=== PATIENT | male | born 1985 | race Two or more races ===

== ENCOUNTER 2024-06-01 00:31 | Inpatient (IN) | payer MEDICARE, MEDICAID, SELFPAY ==
[2024-06-01] VITALS (12 sets, daily range): BP systolic 97–125; BP diastolic 56–66; PULSE 77–142; RESP 16–98; TEMP 36.4–39.4; O2SAT 93–100; BMI 27.4; BMI 27.8; BMI 15.0
--- NOTE | 2024-06-01 00:45 | XR_ITS ---
Examination: AP chest single view Technique one AP portable upright chest single view Exam date and time: June 01, 2024 0059 hrs. Indications: Sepsis protocol Findings: Subsegmental atelectasis left base with mild elevation left hemidiaphragm No lobar pneumonia Orthopedic support rods dorsal spine No pulmonary edema Impression: No lobar pneumonia identified
--- NOTE | 2024-06-01 00:52 | PD.EDRME ---
Rapid Medical Screening Exam RME Arrival date/time: 06/01/24 00:31 Chief Complaint: Wound/Laceration Time Seen by Provider: 06/01/24 00:49 Vital signs: Vital Signs Temperature 100.7 F H 06/01/24 00:42 Pulse Rate 134 H 06/01/24 00:42 Respiratory Rate 18 06/01/24 00:42 Blood Pressure 97/57 L 06/01/24 00:42 Pulse Oximetry (%) 93 L 06/01/24 00:42 Oxygen Delivery Method Room Air 06/01/24 00:42 RME Narrative: 39-year-old male with history of neurogenic bladder, paraplegia, recurrent UTI coming into the emergency department with EMS reports that he has a deep wound on the sacral area. The patient is awake and alert.
[2024-06-01] MEDS: SODIUM CHLORIDE 0.9% 1000 ML 1,000 ML 999 ML IV ×2 (01:15)
[2024-06-01] MEDS: KETOROLAC INJ 30 MG/ML VIAL IVP (01:23)
[2024-06-01] MEDS: ACETAMINOPHEN 500 MG TABLET 1000 MG PO (01:24)
[2024-06-01 01:33] LABS: Lactate (Lactic Acid) 1.3 mMol/L (0.4-2.0)
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
[2024-06-01 01:57] LABS: Basophils # (Auto) 0.1 Thou/mm3 (0.0-0.2); Basophils % (Auto) 1 % (0-2.5); Eosinophils # (Auto) 0.1 Thou/mm3 (0.0-0.5); Eosinophils % (Auto) 1 % (0-10); Hematocrit 33.4 % (41.0-53.0); Hemoglobin 10.8 g/dL (13.5-16.0); Immature Granulocytes % (Auto) 0 % (0-0); Immature Granulocytes Auto 0.04 Thou/mm3 (0.00-0.00); Lymphocytes % (Auto) 24 % (10-50); Mean Corpuscular HGB Conc 32.3 g/dl (31.0-37.0); Mean Corpuscular Volume 87 fL (80-100); Monocytes # (Auto) 0.8 Thou/mm3 (0.0-0.8); Monocytes % (Auto) 6 % (0-12); Neutrophils # (Auto) 8.4 Thou/mm3 (1.8-7.7); Neutrophils % (Auto) 68 % (37-80); Nucleated Red Blood Cell % 0 /100 WBC (0); Platelet Count 449 Thou/mm3 (140-440); RDW Standard Deviation 40.6 fL (35.1-43.9); Red Blood Count 3.86 Miln/mm3 (4.50-5.90); White Blood Count 12.3 Thou/mm3 (3.8-10.6)
--- NOTE | 2024-06-01 02:24 | XR_ITS ---
Examination: CT abdomen with intravenous contrast CT pelvis with intravenous contrast 2-D coronal reconstructions 2-D sagittal reconstructions Date and time of exam:June 01, 2024 at 0340 hrs. Indications: Fever left buttock nonhealing wound with redness swelling and pain this week. CTDI: vol (mGy) 6.88 DLP: (mGycm) 420 Technique: Multiple axial sections of the abdomen and pelvis have been obtained. 64 slice high-resolution scanner used. 3 mm axial sections have been obtained, post intravenous injection 60 cc [id number] 2-D sagittal, coronal reconstructions obtained. Low dose protocols were performed. One or more of the following dose reduction techniques were used; automated exposure control, adjustment of the mA and/or KV according to patient size, use of iterative reconstruction technique. Findings: Trace pericardial thickening No focal liver or splenic lesion Contracted gallbladder No pancreatic or adrenal mass IVC filter No renal or ureteral calculi, no hydronephrosis Abundant stool in the colon Urinary bladder shows wall thickening, the urinary bladder is contracted around a Ward catheter Large air-containing soft tissue defect in the left buttock which extends to the left ischium with osteomyelitis, cortical bone destruction involving the posterior left ischium No fluid-filled drainable abscess Impression: Large soft tissue defect in the left buttock region extending to the left ischium with osteomyelitis left ischium
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
[2024-06-01 02:28] LABS: B-Type Natriuretic Peptide < 20 pg/mL (0-100)
[2024-06-01 02:33] LABS: INR 1.1 (0.9-1.3); Partial Thromboplastin Time 29.9 Seconds (22.0-36.0); Prothrombin Time 12.4 Seconds (9.0-12.2)
[2024-06-01] MEDS: CEFEPIME INJ 2 GM in SODIUM CHLORIDE 0.9% (P) 50 ML IV (02:43)
[2024-06-01] MEDS: Vancomycin Inj 1,000 MG in SODIUM CHLORIDE 0.9% 250 ML 250 ML 150 MG IV (02:45)
[2024-06-01 02:47] LABS: Collection Type, Urine Clean Catch
[2024-06-01 02:51] LABS: Bilirubin,Urine Negative (Negative); Blood,Urine Negative (Negative); Clarity,Urine Clear (Clear/Hazy); Color,Urine Lt-Yellow (Lt Yel-Yel); Glucose, Urine Negative (Negative); Ketones,Urine Negative (Negative); Leukocyte Esterase,Urine Negative (Negative); Nitrite,Urine Negative (Negative); Protein,Urine Negative (Neg - Trace); RBC,Urine 1 /hpf (0-3); Squamous Epithelial Cell,Urine < 1 /hpf (0-5); Urobilinogen,Urine Negative mg/dL (0.0-1.0); WBC,Urine 2 /hpf (0-5)
[2024-06-01 03:07] LABS: Alanine Aminotransferase 17 U/L (10-49); Albumin, Serum 3.9 gm/dL (3.5-5.0); Albumin/Globulin Ratio 1.3 (1.2-2.2); Alkaline Phosphatase 93 U/L (46-116); Anion Gap 9 (7-16); Aspartate Amino Transferase < 8 U/L (0-34); BUN/Creatinine Ratio 18 Ratio (12-20); Bilirubin,Total 0.3 mg/dL (0.3-1.2); Blood Urea Nitrogen 14 mg/dL (9-23); Calcium 8.2 mg/dL (8.3-10.6); Calcium (Corrected) 8.3 mg/dL (8.5-10.1); Carbon Dioxide 24.7 mMol/L (20.0-31.0); Chloride 100 mMol/L (98-107); Creatinine (Component) 0.8 mg/dL (0.6-1.3); Estimated Creatinine Clearance 119.5 mL/min (>60); Glucose 116 mg/dL (74-106); LDH (Lactate Dehydrogenase) 194 U/L (120-246); Lipase 38 U/L (12-53); Osmolality,Calculated 269 (275-295); Phosphorous 1.9 mg/dL (2.4-5.1); Potassium 3.4 mMol/L (3.4-5.1); Procalcitonin 0.51 ng/ml (0.0-0.49); Sodium 134 mMol/L (136-145); Total Protein 6.9 gm/dL (5.7-8.2); Troponin I < 0.002 ng/mL (0.0-0.045); eGFR > 60 See Note
--- NOTE | 2024-06-01 04:50 | PRELIM_ITS ---
CT scan of the abdomen and pelvis with intravenous contrast (axial sections with sagittal and coronal reformats) June 01, 2024 at 0340 hoursClinical History: 39 yo with paraplegia, le buttock woundC omparison: None available at the time of this report.Findings:The lung bases are clear.The liver, ga llbladder, pancreas, spleen, kidneys and adrenals are unremarkable.No evidence of bowel obstruction. No evidence of appendicitis. There is no mesenteric or retroperitoneal adenopathy.Ward catheter in place. There is no free fluid or free air.Partially imaged thoracic spine hardware.IVC filter in pl [place].No acute fractures.Elevated left hemidiaphragm.Decubitus wound at the level of the left buttock e xtending to the left ischial tuberosity with lytic changes of the left ischium.Impression:1. Left but tock decubitus wound associated with osteomyelitis.2. Elevated left hemidiaphragm.Discussion Details: Results verbally communicated to : Dr. Denton at 04:45 AM 06/01/2024 Report Electronically Signed By: Jayme Cancino 06/01/2024 4:49:53 AM [EST]
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
[2024-06-01] MEDS: PIPER/TAZO INJ 3.375 GM in SODIUM CHLORIDE 0.9% 100 ML IV (05:49)
[2024-06-01] MEDS: SODIUM CHLORIDE 0.9% 1000 ML 1,000 ML 75 ML IV (05:54)
[2024-06-01 07:08] LABS: Ferritin 549 ng/mL (10.5-307.3); Iron 17 mcg/dL (65-175); Percent Iron Saturation 9 % (20-55); Total Iron Binding Capacity 184 mcg/dL (250-425); Unsaturated Iron Binding 167 (225-295)
--- NOTE | 2024-06-01 07:08 | PC.NURSE ---
CALLED PHARMACY TO BRING KPHOS. WILL BRING MED TO ER.
[2024-06-01] MEDS: POTASSIUM PHOS 22.5 MMOL in SODIUM CHLORIDE 0.9% 500 ML 500 ML 82.778 MMOL IV (07:41)
--- NOTE | 2024-06-01 07:45 | PC.NURSE ---
PT BROUGHT IN WITH C/O FEVER AND BEING ADMITTED FOR OSTEOMYELITIS LEFT BUTTOCK WOUND. INTRODUCED TO DAY SHIFT NURSE, AND NO COMPLAINTS AT THIS TIME.
--- NOTE | 2024-06-01 08:11 | PC.NURSE ---
PHARMACY CALLED FOR MORNING MEDICATIONS
[2024-06-01 08:25] LABS: C-Reactive Protein 16.5 mg/dL (0.0-0.9)
[2024-06-01] MEDS: NAPH,KPH MBDB 1 PACKET (1.5 GM) 2 PACKET PO (09:00)
[2024-06-01] MEDS: ENOXAPARIN SOD INJ 40 MG/0.4 ML SYRINGE SC (09:00)
[2024-06-01] MEDS: CALCIUM CARBONATE 600 MG TABLET 1200 MG PO (09:00)
[2024-06-01 09:32] LABS: Sed Rate (ESR) 60 mm/hr (0-15)
[2024-06-01] MEDS: VANCOMYCIN/WATER 1250 MG IVPB 250 ML 120 MG IV ×2 (10:09→21:12)
--- NOTE | 2024-06-01 11:51 | PC.NURSE ---
RN spoke with MD at bedside asking about wound care for the wound on the left buttock. stated Dr. Cisse has been consulted. MD ordered RN to consult wound nurse as well. MD ordered to leave wound open to air until wound nurse can see the pt.
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
--- NOTE | 2024-06-01 12:30 | PC.WOUND ---
Rounded with Dr. Cisse at bedside, no surgical intervention required. Orders received for wound care.
[2024-06-01] MEDS: PIPER/TAZO 3.375 GM 50 ML IV ×2 (15:04→21:19)
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
[2024-06-01] MEDS: COLLAGENASE OINT 30 GM TUBE TOP (21:19)
[2024-06-01] MEDS: ONDANSETRON INJ 2 MG/ML INJ 2 ML 4 MG IV (21:28)
[2024-06-02] VITALS: BP 108/64; PULSE 112; RESP 16; TEMP 37.3; O2SAT 97
[2024-06-02 04:00] VITALS: BP 117/65; PULSE 99; RESP 16; TEMP 36.2; O2SAT 97
[2024-06-02] MEDS: PIPER/TAZO 3.375 GM 50 ML IV ×3 (05:31→22:55)
[2024-06-02 06:10] LABS: Basophils % (Auto) 0 % (0-2.5); Eosinophils # (Auto) 0.2 Thou/mm3 (0.0-0.5); Eosinophils % (Auto) 2 % (0-10); Hemoglobin 10.7 g/dL (13.5-16.0); Immature Granulocytes % (Auto) 0 % (0-0); Immature Granulocytes Auto 0.03 Thou/mm3 (0.00-0.00); Lymphocytes # (Auto) 2.1 Thou/mm3 (1.0-4.8); Lymphocytes % (Auto) 24 % (10-50); Mean Corpuscular HGB Conc 32.4 g/dl (31.0-37.0); Mean Corpuscular Hemoglobin 28.2 pg (25.0-35.0); Mean Corpuscular Volume 87 fL (80-100); Monocytes # (Auto) 0.6 Thou/mm3 (0.0-0.8); Monocytes % (Auto) 7 % (0-12); Neutrophils # (Auto) 5.9 Thou/mm3 (1.8-7.7); Neutrophils % (Auto) 67 % (37-80); Nucleated Red Blood Cell % 0 /100 WBC (0); Platelet Count 410 Thou/mm3 (140-440); RDW Standard Deviation 40.6 fL (35.1-43.9); White Blood Count 8.9 Thou/mm3 (3.8-10.6)
[2024-06-02 06:39] LABS: Anion Gap 8 (7-16); BUN/Creatinine Ratio 13 Ratio (12-20); Blood Urea Nitrogen 8 mg/dL (9-23); Calcium 8.2 mg/dL (8.3-10.6); Carbon Dioxide 26.9 mMol/L (20.0-31.0); Chloride 106 mMol/L (98-107); Creatinine (Component) 0.6 mg/dL (0.6-1.3); Estimated Creatinine Clearance 160.2 mL/min (>60); Glucose 114 mg/dL (74-106); Osmolality,Calculated 280 (275-295); Potassium 3.6 mMol/L (3.4-5.1); Sodium 141 mMol/L (136-145); eGFR > 60 See Note
[2024-06-02 08:00] VITALS: BP 116/72; PULSE 102; RESP 18; TEMP 36.3; O2SAT 98
[2024-06-02] MEDS: ENOXAPARIN SOD INJ 40 MG/0.4 ML SYRINGE SC (08:33)
[2024-06-02 10:15] LABS: Vancomycin,Trough 6.2 mcg/mL (5.0-10.0)
[2024-06-02 10:31] LABS: Magnesium 2.1 mg/dL (1.6-2.6); Phosphorous 3.6 mg/dL (2.4-5.1)
[2024-06-02] MEDS: VANCOMYCIN/NS 750 MG IVPB 750 MG/150 ML BAG 120 MG IV ×2 (10:55→22:55)
--- NOTE | 2024-06-02 11:39 | XR_ITS ---
Examination: Ultrasound-guided needle placement right brachial vein. Dual-lumen central line placement (PICC line). Fluoroscopy AP chest, portable, single view Exam date and time:June 02, 2024 at 1344 hours INDICATIONS: Need for long-term intravenous antibiotic therapy for osteomyelitis A timeout was completed verifying correct patient, procedure, site, positioning Informed consent provided Technique: The patient's site was prepped and draped in sterile fashion. Maximum Sterile Barrier Technique used including cap, mask, sterile gown, sterile gloves, and sterile full body drape. If ultrasound technique used: sterile gel and sterile probe covers. Hand Hygiene performed using proper scrub, soap and water, or alcohol-based hand rub. Site right portable apparatus utilized to confirm patency of the right brachial vein Utilizing ultrasonographic guidance successful 21-gauge needle puncture into the right brachial vein Ultrasound images recorded and stored. 5 cc 1% lidocaine administered for local anesthetic. Successful micropuncture with a 21-gauge needle is performed. 0.18 wire guide is then introduced into the SVC under fluoroscopic guidance. Dual-lumen catheter dilator is then introduced, followed by the catheter in the SVC and proper position under fluoroscopic guidance. Successful aspiration of blood and flushing with heparinized saline is then performed in the 2 venous limbs. The catheter sutured in place. Findings: Under fluoroscopy, the tip of the catheter is in good position in the vena cava. Portable chest x-ray, post line placement is ordered. Estimated blood loss 3 cc The patient tolerated the procedure well and was in stable and satisfactory condition at completion of the procedure Impression: Successful ultrasound-guided needle placement right brachial vein Successful placement of dual lumen central line, percutaneous Fluoroscopy 0.1 minute radiation dose 0.6 milligray 1 spot fluoroscopic chest film. AP chest completion procedure demonstrates satisfactory position central line. May use central line.
[2024-06-02 12:00] VITALS: BP 122/81; PULSE 72; RESP 18; TEMP 36.3; O2SAT 95
[2024-06-02 14:30] VITALS: BMI 27.8
--- NOTE | 2024-06-02 14:47 | PC.DIETICIAN ---
Addendum entered by Lyly Velasquez RD 06/02/24 14:54: 1. RD to add Flavored Caden 1 pkt BID daily w/ lunch and dinner; mix with 6-8 oz water for targeted nutrition and wound healing, RN to administer as medication 2. Recommendation: add Vitamin C 500mg BID daily, zinc 220mg. 3. Multivitamin-Mineral daily to ensure adequate nutrient intake and promote wound healing. 4. Recommend Prostat, increased protein to promote wound healing and adequate nutrition. 5. If intake <50%, consider ONS, Ensure Max Protein Original Note: 1. RD to add Flavored Caden 1 pkt BID daily w/ lunch and dinner; mix with 6-8 oz water for targeted nutrition and wound healing, RN to administer as medication 2. Recommendation: add Vitamin C 500mg BID daily, zinc 220mg. 3. Multivitamin-Mineral daily to ensure adequate nutrient intake and promote wound healing. 4. Recommend Prostat, increased protein to promote wound healing and adequate nutrition.
--- NOTE | 2024-06-02 15:43 | PC.SS ---
SS met with pt to discuss d/c plan to home or SNF. Pt is agreeable to SNF if recommended by physician. Pt possibly will require IV antibiotic at d/c. Waiting for ID recommendations. Pt is currently on IV antibiotic. Pt does not have preference for short term SNF.
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
[2024-06-02 16:00] VITALS: BP 122/72; PULSE 98; RESP 18; TEMP 36.2; O2SAT 100
--- NOTE | 2024-06-02 16:24 | PD.IDPROG ---
Subjective Subjective Interval history: treating a du with osteo with abx. that is ok, but a du is primarily a pressure sore, so if you do not relieve pressure, nothing will change but you will feel better having treated the infection I will see pt tomorrow. wed, pm Exam Vital Signs Temp Pulse Resp BP Pulse Ox O2 Del Method 97.4 F 72 18 122/81 95 Room Air 06/02/24 12:00 06/02/24 12:00 06/02/24 12:00 06/02/24 12:00 06/02/24 12:00 06/02/24 12:00 Objective - Internal Medicine Labs 06/02/24 05:00 06/02/24 05:18 Labs: Laboratory Results - last 24 hr 06/02/24 06/02/24 06/02/24 05:00 05:18 09:35 WBC 8.9 RBC 3.80 L Hgb 10.7 L Hct 33.0 L MCV 87 MCH 28.2 MCHC 32.4 RDW Std Deviation 40.6 Plt Count 410 D Neut % (Auto) 67 Lymph % (Auto) 24 [place] % (Auto) 7 Eos % (Auto) 2 Baso % (Auto) 0 Neut # (Auto) 5.9 Lymph # (Auto) 2.1 [place] # (Auto) 0.6 Eos # (Auto) 0.2 Baso # (Auto) 0.0 Immature Gran # (Auto) 0.03 H Absolute Nucleated RBC 0.00 Immature Gran % 0 Nucleated RBC % 0 Sodium 141 Potassium 3.6 Chloride 106 Carbon Dioxide 26.9 Anion Gap 8 BUN 8 L Creatinine 0.6 Estim Creat Clear Calc 160.2 eGFR > 60 BUN/Creatinine Ratio 13 Glucose 114 H Calculated Osmolality 280 Calcium 8.2 L Phosphorus 3.6 Magnesium 2.1 Vancomycin Trough 6.2 Assessment & Plan A&P Narrative pelvic osteo on imaging paraplegia per notes spasticity per meds vanco/zosyn is classic but is empiric. I tend to favor rocephin and doxy and avoidance of pressure. will see tomorrow pm Time Spent With Patient Time: Total time spent is greater than 50% in coordination of care (as documented) at patient's floor/unit and/or counseling patient:
[2024-06-02 20:00] VITALS: BP 117/69; PULSE 68; RESP 18; TEMP 36.7; O2SAT 93
[2024-06-02] MEDS: COLLAGENASE OINT 30 GM TUBE TOP (20:19)
[2024-06-03] VITALS: BP 96/57; PULSE 108; RESP 18; TEMP 37.3; O2SAT 96
[2024-06-03 03:55] VITALS: BP 114/72; PULSE 86; RESP 18; TEMP 36.5; O2SAT 97
[2024-06-03] MEDS: PIPER/TAZO 3.375 GM 50 ML IV ×3 (05:17→21:09)
[2024-06-03] MEDS: VANCOMYCIN/NS 750 MG IVPB 750 MG/150 ML BAG 120 MG IV ×3 (05:17→21:09)
[2024-06-03 06:04] LABS: Basophils % (Auto) 0 % (0-2.5); Eosinophils # (Auto) 0.2 Thou/mm3 (0.0-0.5); Eosinophils % (Auto) 2 % (0-10); Hematocrit 34.2 % (41.0-53.0); Hemoglobin 10.9 g/dL (13.5-16.0); Immature Granulocytes % (Auto) 0 % (0-0); Immature Granulocytes Auto 0.04 Thou/mm3 (0.00-0.00); Lymphocytes # (Auto) 2.1 Thou/mm3 (1.0-4.8); Lymphocytes % (Auto) 21 % (10-50); Mean Corpuscular HGB Conc 31.9 g/dl (31.0-37.0); Mean Corpuscular Volume 88 fL (80-100); Monocytes # (Auto) 0.6 Thou/mm3 (0.0-0.8); Monocytes % (Auto) 6 % (0-12); Neutrophils # (Auto) 7.1 Thou/mm3 (1.8-7.7); Neutrophils % (Auto) 70 % (37-80); Nucleated Red Blood Cell % 0 /100 WBC (0); Platelet Count 412 Thou/mm3 (140-440); RDW Standard Deviation 41.2 fL (35.1-43.9); Red Blood Count 3.89 Miln/mm3 (4.50-5.90)
--- NOTE | 2024-06-03 06:20 | PC.NURSE ---
Dr. Tate notified of wound culture results. No new orders at this moment.
[2024-06-03 06:26] LABS: Anion Gap 5 (7-16); BUN/Creatinine Ratio 10 Ratio (12-20); Blood Urea Nitrogen 6 mg/dL (9-23); Calcium 8.4 mg/dL (8.3-10.6); Carbon Dioxide 28.7 mMol/L (20.0-31.0); Chloride 105 mMol/L (98-107); Creatinine (Component) 0.6 mg/dL (0.6-1.3); Estimated Creatinine Clearance 156.9 mL/min (>60); Glucose 103 mg/dL (74-106); Osmolality,Calculated 275 (275-295); Potassium 3.7 mMol/L (3.4-5.1); Sodium 139 mMol/L (136-145); eGFR > 60 See Note
[2024-06-03 06:58] LABS: Hepatitis C Antibody Non Reactive (Non React)
[2024-06-03 07:37] LABS: HIV (1&2) Antibody Rapid Non-Reactive
[2024-06-03 08:00] VITALS: BP 121/67; PULSE 80; RESP 17; TEMP 36.6; O2SAT 96
--- NOTE | 2024-06-03 09:10 | PC.SS ---
Follow up note: Pt is on IV antibiotic. Waiting for ID recommendations. Pt is agreeable to SNF if he requires IV antibiotic.
[2024-06-03] MEDS: ENOXAPARIN SOD INJ 40 MG/0.4 ML SYRINGE SC (09:55)
[2024-06-03 12:00] VITALS: BP 121/71; PULSE 78; RESP 18; TEMP 36.1; O2SAT 97
--- NOTE | 2024-06-03 12:35 | PC.SS ---
Pt is requiring IV antibiotic, Rocephin 2grm 1 X day until Jul 14, 2023. SS has sent inquiry to SNF in [place] and outside the area using [facility]. PASRR assessment is completed.
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
--- NOTE | 2024-06-03 14:12 | PD.IDPROG ---
Subjective Subjective Interval history: hx as noted. Exam Vital Signs Temp Pulse Resp BP Pulse Ox O2 Del Method 97.0 F 78 18 121/71 97 Room Air 06/03/24 12:00 06/03/24 12:00 06/03/24 12:00 06/03/24 12:00 06/03/24 12:00 06/03/24 12:00 Objective - Internal Medicine Labs 06/03/24 05:10 06/03/24 05:10 Labs: Laboratory Results - last 24 hr 06/03/24 06/03/24 05:10 13:34 WBC 10.0 RBC 3.89 L Hgb 10.9 L Hct 34.2 L MCV 88 MCH 28.0 MCHC 31.9 RDW Std Deviation 41.2 Plt Count 412 Neut % (Auto) 70 Lymph % (Auto) 21 [place] % (Auto) 6 Eos % (Auto) 2 Baso % (Auto) 0 Neut # (Auto) 7.1 Lymph # (Auto) 2.1 [place] # (Auto) 0.6 Eos # (Auto) 0.2 Baso # (Auto) 0.0 Immature Gran # (Auto) 0.04 H Absolute Nucleated RBC 0.00 Immature Gran % 0 Nucleated RBC % 0 Sodium 139 Potassium 3.7 Chloride 105 Carbon Dioxide 28.7 Anion Gap 5 L BUN 6 L Creatinine 0.6 Estim Creat Clear Calc 156.9 eGFR > 60 BUN/Creatinine Ratio 10 L Glucose 103 Calculated Osmolality 275 Calcium 8.4 Vancomycin Trough 15.0 H Hepatitis C Antibody Non Reactive HIV 1&2 Antibody Rapid Non-Reactive Assessment & Plan A&P Narrative pelvic osteo on imaging paraplegia per notes spasticity per meds vanco/zosyn is classic but is empiric. I tend to favor rocephin and doxy and avoidance of pressure. bc aer neg at >48h Time Spent With Patient Time: Total time spent is greater than 50% in coordination of care (as documented) at patient's floor/unit and/or counseling patient:
[2024-06-03 16:00] VITALS: BP 119/77; PULSE 94; RESP 18; TEMP 36.2; O2SAT 99
--- NOTE | 2024-06-03 16:24 | PC.SS ---
SS met with pt and his dad to provide them with choices for SNF. Pt has been accepted to [facility], [facility], [facility], [facility], and [facility]. Pt is requesting [facility] but the declined. Patient's choice is [facility]. SS spoke to Amy at [facility] they will start insurance authorization. Pt and dad are aware. Bedside nurse, Stephenie is aware.
--- NOTE | 2024-06-03 18:37 | PC.NURSE ---
Wound vac changed.
[2024-06-03 20:00] VITALS: BP 127/73; PULSE 102; RESP 18; TEMP 36.6; O2SAT 99
[2024-06-03] MEDS: COLLAGENASE OINT 30 GM TUBE TOP (20:20)
[2024-06-03] MEDS: SENNA TABLET 1 TAB PO (21:10)
[2024-06-04] VITALS: BP 113/66; PULSE 107; RESP 18; TEMP 36.8; O2SAT 99
[2024-06-04 04:00] VITALS: BP 119/60; PULSE 108; RESP 18; TEMP 37.2; O2SAT 95
[2024-06-04] MEDS: VANCOMYCIN/NS 750 MG IVPB 750 MG/150 ML BAG 120 MG IV (05:08)
[2024-06-04] MEDS: PIPER/TAZO 3.375 GM 50 ML IV (05:08)
[2024-06-04 06:02] LABS: Basophils % (Auto) 0 % (0-2.5); Eosinophils # (Auto) 0.3 Thou/mm3 (0.0-0.5); Eosinophils % (Auto) 3 % (0-10); Hematocrit 34.5 % (41.0-53.0); Immature Granulocytes % (Auto) 0 % (0-0); Immature Granulocytes Auto 0.03 Thou/mm3 (0.00-0.00); Lymphocytes # (Auto) 1.8 Thou/mm3 (1.0-4.8); Lymphocytes % (Auto) 20 % (10-50); Mean Corpuscular HGB Conc 31.9 g/dl (31.0-37.0); Mean Corpuscular Hemoglobin 27.8 pg (25.0-35.0); Mean Corpuscular Volume 87 fL (80-100); Monocytes # (Auto) 0.6 Thou/mm3 (0.0-0.8); Monocytes % (Auto) 6 % (0-12); Neutrophils # (Auto) 6.6 Thou/mm3 (1.8-7.7); Neutrophils % (Auto) 71 % (37-80); Nucleated Red Blood Cell % 0 /100 WBC (0); Platelet Count 390 Thou/mm3 (140-440); RDW Standard Deviation 41.1 fL (35.1-43.9); Red Blood Count 3.96 Miln/mm3 (4.50-5.90); White Blood Count 9.2 Thou/mm3 (3.8-10.6)
[2024-06-04 06:27] LABS: Anion Gap 7 (7-16); BUN/Creatinine Ratio 10 Ratio (12-20); Blood Urea Nitrogen 7 mg/dL (9-23); Calcium 8.9 mg/dL (8.3-10.6); Carbon Dioxide 27.9 mMol/L (20.0-31.0); Chloride 103 mMol/L (98-107); Creatinine (Component) 0.7 mg/dL (0.6-1.3); Estimated Creatinine Clearance 134.5 mL/min (>60); Glucose 104 mg/dL (74-106); Osmolality,Calculated 273 (275-295); Potassium 3.8 mMol/L (3.4-5.1); Sodium 138 mMol/L (136-145); eGFR > 60 See Note
[2024-06-04 08:00] VITALS: BP 93/75; PULSE 115; RESP 18; TEMP 36.3; O2SAT 96
[2024-06-04] MEDS: SENNA TABLET 1 TAB PO (09:21)
[2024-06-04] MEDS: ENOXAPARIN SOD INJ 40 MG/0.4 ML SYRINGE SC (09:21)
[2024-06-04 12:00] VITALS: BP 96/66; PULSE 106; RESP 17; TEMP 36.2; O2SAT 98
--- NOTE | 2024-06-04 12:37 | PC.SS ---
Addendum entered by Yas Mcdonough 06/04/24 13:48: SS received call from Ariana at [facility] who explained pt is not under [place]. SS spoke to Marce from [facility] who provided SS with [employer]'s phone# [phone] to assist with insurance authorization. SS was only able to leave voicemail with SS contact information. Marce is attempting to obtain fax#. Marce explained patient's health insurance [place] will only initiate authorization request through the hospital. Original Note: SS spoke to Gissel at [phone] (from [facility] notes) and explained to call [phone]. SS called [employer] at [phone] and spoke to Arpit who explained no member policy found with [place]. SS called Wilson from [facility] [phone] ex [phone] was only able to leave voicemail SS called Julianna [phone] was only able to leave voicemail SS called Marce from [facility] and explained she will provide SS with their personal lines account manager's information to get insurance authorization.
[2024-06-04] MEDS: DOXYCYCLINE 100 MG TABLET PO ×2 (14:08→21:01)
[2024-06-04] MEDS: cefTRIAXone/D5w 1gm IV premix 50 ML IV (14:08)
--- NOTE | 2024-06-04 14:27 | PC.SS ---
SUNNY spoke to Marce from [employer] who explained she confirmed with their authorization department Mu's fax# is [phone]. SUNNY has sent inquiry and PASRR to fax# provided by [employer]. Insurance authorization is pending.
[2024-06-04 16:00] VITALS: BP 116/63; PULSE 93; RESP 17; TEMP 36.4; O2SAT 98
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
--- NOTE | 2024-06-04 17:09 | PC.NURSE ---
Wound vac discontinued per wound JERRY Bettencourt. Wet to dry dressing applied to L Ischium, patient tolerated well
[2024-06-04 20:00] VITALS: BP 129/52; PULSE 68; RESP 18; TEMP 36.3; O2SAT 92
[2024-06-04] MEDS: COLLAGENASE OINT 30 GM TUBE TOP (21:00)
[2024-06-05] VITALS: BP 100/65; PULSE 91; RESP 18; TEMP 36.4; O2SAT 95
[2024-06-05 04:00] VITALS: BP 101/57; PULSE 94; RESP 16; TEMP 36.4; O2SAT 95
[2024-06-05 08:00] VITALS: BP 110/59; PULSE 103; RESP 19; TEMP 36.1; O2SAT 97
[2024-06-05] MEDS: DOXYCYCLINE 100 MG TABLET PO (08:02)
[2024-06-05] MEDS: SENNA TABLET 1 TAB PO (08:03)
[2024-06-05] MEDS: ENOXAPARIN SOD INJ 40 MG/0.4 ML SYRINGE SC (08:03)
--- NOTE | 2024-06-05 09:21 | PC.SS ---
Addendum entered by Yas Mcdonough 06/05/24 16:36: SS received authorization from [facility] and SS sent it to [facility]. Steph from [facility] is aware. SS met with pt (sister in law and nephews were at bedside) to inform him both parents did not answer. Pt states his dad is aware. Addendum entered by Yas Mcdonough 06/05/24 16:15: SS spoke to Angela, specialty plant supervisor from [facility] (number provided by SALAZAR Quiñonez) phone# [phone] and spoke to Alena nelson [phone] who confirmed she she has received fax from and will contact [facility] to provide insurance authorization. SS provided [facility]'s contact information. SS received insurance authorization form from [facility]. SS was informed by Marce at [facility] they have received insurance authorization and can accept pt. Pt is aware. Bedside nurse, Brittanie is aware. SS has setup transportation with [facility] and sent them ARLEEN along with patient's facesheet and ambulance form. Transport is set for 6pm. patient's dad did not answer. Mom did not answer and SS is unable to leave voicemail. Addendum entered by Yas Mcdonough 06/05/24 14:55: SS met with to obtain his insurance card from [employer]. Pt states his insurance card is at home. Pt is aware to inform parents to bring insurance card to hospital. SS attempted to contact patient's father but he did not answer. SS spoke to patient's mom who is aware patient's insurance card is needed and will have family bring bring card to hospital. SS has spoke to Marce at [facility] and she will also fax inquiry for authorization to [facility]. Addendum entered by Yas Mcdonough 06/05/24 11:24: SS received call back from Rashida, coordinator at [facility] and provided fax# [phone]. SS also received call back from Viral who transferred call to Angelica from [facility] and she provided fax# [phone] Angelica and Rashida requested for SS to fax inquiry for insurance authorization. Addendum entered by Yas Toro Mcdonough 06/05/24 10:40: SS called [phone] [facility] and registered SS phone# for call back. Addendum entered by Yas Mcdonough 06/05/24 10:29: This morning SS called [facility] around 8:35-8:50, was on hold, and unable to speak to representatives. At 10:320 SS attempted to contact [facility] [phone] to assist with insurance authorization (phone# provided by Marce from [facility]) but was unsuccessful. SS left voicemail. At 10:327 SS called [facility] at [phone] was on hold until 10:35. SS registered phone# to receive call back at [phone] (unable to leave voicemail) Original Note: SS received call from Marce at [facility] who explained she has contacted her Drafter Apprentice and was provided with fax# for [facility]. has faxed inquiry with d/c summary and order to the number provided by Marce and sent inquiry to [facility] using [employer].
--- NOTE | 2024-06-05 09:22 | PD.IDPROG ---
Subjective Subjective Interval history: bc done at same time neg so far. only pos is wound cx. Exam Vital Signs Temp Pulse Resp BP Pulse Ox O2 Del Method 97.0 F 103 H 19 110/59 L 97 Room Air 06/05/24 08:00 06/05/24 08:00 06/05/24 08:00 06/05/24 08:00 06/05/24 08:00 06/05/24 08:00 Narrative Exam limited eval Objective - Internal Medicine Labs 06/04/24 05:00 06/04/24 05:00 Assessment & Plan A&P Narrative pelvic osteo on imaging paraplegia per notes spasticity per meds vanco/zosyn is classic but is empiric. I tend to favor rocephin and doxy and avoidance of pressure. bc neg at >48h f/u with others ok to treat for 6 weeks with iv rocephin 2 gm iv daily and doxy 100 mg po bid with weekly cbc, renal panel, esr and line removal at end of rx will see again prn Time Spent With Patient Time: Total time spent is greater than 50% in coordination of care (as documented) at patient's floor/unit and/or counseling patient:
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
--- NOTE | 2024-06-05 11:30 | CHAP ---
Patient was visited by the Spiritual Care Volunteer who prayed for them. Volunteer was in the hospital from c10:00-11:30)
[2024-06-05 12:00] VITALS: BP 112/84; PULSE 98; RESP 17; TEMP 36.4; O2SAT 99
[2024-06-05] MEDS: cefTRIAXone/D5w 1gm IV premix 50 ML IV (12:43)
[2024-06-05 16:00] VITALS: BP 106/71; PULSE 122; RESP 18; TEMP 36.3; O2SAT 97
--- NOTE | 2024-06-05 16:47 | PC.NURSE ---
Report given to Sarah Lewis at [facility]
[2024-06-08 06:53] LABS: Vitamin D,1,25 (OH)2,Total 33 pg/mL (18-72); Vitamin D2, 1,25 (OH)2 <8 pg/mL; Vitamin D3, 1,25 (OH)2 33 pg/mL
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
== END 2024-06-05 18:05 | disposition skilled nursing facility (03) | DRG 539 ==
LOC: SERX 05:25 → SERHOLD 05:26 → S3SX 11:29
PROVIDERS: Internal Medicine Infectious Disease; Student in an Organized Health Care Education/Training Program; Admitting Provider Internal Medicine; Emergency Provider Emergency Medicine; Visit Provider Internal Medicine
DX: M86.18 Other acute osteomyelitis, other site (principal); L89.154 Pressure ulcer of sacral region, stage 4; E87.1 Hypo-osmolality and hyponatremia; N39.0 Urinary tract infection, site not specified; G82.20 Paraplegia, unspecified; N31.9 Neuromuscular dysfunction of bladder, unspecified; D75.839 Thrombocytosis, unspecified; E87.6 Hypokalemia; E83.39 Other disorders of phosphorus metabolism; Z87.440 Personal history of urinary (tract) infections; D63.8 Anemia in other chronic diseases classified elsewhere
CPT/HCPCS: 36415; 71045; 74177; 80048; 80053; 80202; 81001; 82652; 82728; 83540; 83550; 83605; 83615; 83690; 83735; 83880; 84100; 84145; 84484; 85025; 85610; 85652; 85730; 86140; 86703; 86803; 87040; 87070; 87077; 87081; 87086; 87186; 87205; 87811; 93005; 96361; 96365; 96366; 96367; 96368; 96375; 97161; 99291; A4649; C1894; J0692; J0696; J1650; J1885; J2405; J2543; J3370; J3371; J3372; J7030; J7040; J7050; Q9967; A9270

== ENCOUNTER 2024-06-13 23:36 | Inpatient (IN) | payer MEDICARE, MEDICAID, SELFPAY ==
[2024-06-13 23:38] VITALS: BP 118/71; PULSE 116; RESP 17; TEMP 37.2; O2SAT 94; BMI 26.6
[2024-06-13 23:53] VITALS: PULSE 112; RESP 17; O2SAT 98; BMI 26.6
[2024-06-14] VITALS (22 sets, daily range): BP systolic 99–143; BP diastolic 53–85; PULSE 80–120; RESP 10–100; TEMP 36.7–39.1; O2SAT 98–100
--- NOTE | 2024-06-14 00:07 | PC.NURSE ---
sepsis alert called
--- NOTE | 2024-06-14 00:10 | EKG_ITS ---
[facility] Test Date: 2024-06-14 Pat Name: LENNOX AVELAR Department: Room: - Gender: Male Patient Scheduling Manager: : 1985 Requested By: ED Temporary Provider Order Number: [id number] Reading MD: ED Temporary Provider Measurements Intervals [place] Rate: 98 P: 62 [place]: 119 QRS: 33 QRSD: 85 T: 61 QT: 339 QTc: 433 Interpretive Statements SINUS RHYTHM WITH SHORT OH INTERVAL No previous ECG available for comparison /store/S0/[id number].pdf
--- NOTE | 2024-06-14 00:11 | XR_ITS ---
Examination: AP chest single view Technique one AP semiupright portable chest single view Exam date and time: June 14, 2024 at 0023 hrs. Comparison June 01, 2024 Indications: Sepsis protocol Findings: Subsegmental atelectasis left base with elevation left hemidiaphragm No lobar pneumonia Minor prominence of ventricle Right arm dual-lumen central PICC line tip SVC No pneumothorax Impression: Minor atelectasis left base
--- NOTE | 2024-06-14 00:17 | EDNOTE_ITS ---
ED Fever RME/HPI General Chief Complaint: Fever Stated Complaint: FEVER Time Seen by Provider: 06/14/24 00:15 Arrival date/time: 06/13/24 23:36 Limitations: no limitations RME / HPI RME / HPI Narrative: Dr. Morfin's Main ED Evaluation: 39yo male with a history of stage 4 left buttock wound BIBA from [facility] presents to the ED for a chief complaint of a fever x 1 day. Patient reports associated sweating. 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 Denies any N/V/D, back pain, hematuria, dysuria or any other associated symptoms. No known allergies. Related Data Home Medications ?Medication ?Instructions ?Recorded ?Confirmed baclofen 20 mg tablet 20 mg PO TID #0 tabs 05/18/17 Previous Rx's ?Medication ?Instructions ?Recorded ceftriaxone 2 gram intravenous 2 g IV QDAY 42 days 06/03/24 solution doxycycline hyclate 100 mg tablet 100 mg PO BID 42 days #84 tabs 06/03/24 Allergies Allergy/AdvReac Type Severity Reaction Status Date / Time No Known Allergies Allergy Verified 11/11/18 18:07 Review of Systems Review of Systems Systems Reviewed: All systems reviewed, normal except as documented Past Medical History Past Medical History NEUROLOGIC: Positive Neurological Disorders and Spinal Cord Injury CARDIAC: Negative Cardiac Disorders or Congestive Heart Failure RESPIRATORY: Negative Chronic Obstructive Pulmonary Disease (COPD) or Asthma GENITOURINARY: Negative Renal Disease ENDOCRINE: Negative Diabetes Mellitus Type 1 or Diabetes Mellitus Type 2 HEMATOLOGIC: Negative Sickle Cell Disease Social History SMOKING STATUS: Former smoker Physical Exam General Limitations: no limitations General appearance: alert, in no apparent distress and other (responsive, talking in full sentences) Head Head exam: atraumatic Eye Eye exam: Present normal appearance, PERRL and EOMI ENT ENT exam: Present normal exam, normal oropharynx and mucous membranes moist Neck Neck exam: Present normal inspection, full ROM and trachea midline Chest Chest inspection: Present normal inspection and symmetric chest wall rise Respiratory Respiratory exam: Present normal lung sounds bilaterally Cardiovascular Cardiovascular exam: Present regular rate, normal rhythm and normal heart sounds Abdominal Exam Abdominal exam: Present soft and normal bowel sounds; Absent distention Extremities Exam Extremities exam: Present normal inspection and full ROM Back Exam Back exam: Present normal inspection, full ROM, paraspinal tenderness (mild along the right shoulder area) and other (no midline cervical or thoracic tenderness) Neurological Exam Neurological exam: Present alert, oriented X3 and CN II-XII intact Psychiatric Psychiatric exam: Present normal affect and normal mood Skin Skin exam: Present warm, dry, normal color and other (wound on the left buttock cheek is packed with gauze, but there is no obvious discharge, surrounding erythema or tenderness); Absent rash or mottled ED Exam General Limitations: Present no limitations General appearance: Present alert, in no apparent distress and other (responsive, talking in full sentences) Head Head exam: Present atraumatic Eye Eye exam: Present normal appearance, PERRL and EOMI ENT ENT exam: Present normal exam, normal oropharynx and mucous membranes moist Neck Neck exam: Present normal inspection, full ROM and trachea midline Chest Chest inspection: Present normal inspection and symmetric chest wall rise Respiratory Respiratory exam: Present normal lung sounds bilaterally Cardiovascular Cardiovascular exam: Present regular rate, normal rhythm and normal heart sounds Abdominal Exam Abdominal exam: Present soft and normal bowel sounds; Absent distention Extremities Exam Extremities exam: Present normal inspection and full ROM Back Exam Back exam: Present normal inspection, full ROM, paraspinal tenderness (mild along the right shoulder area) and other (no midline cervical or thoracic tenderness) Neurological Exam Neurological exam: Present alert, oriented X3 and CN II-XII intact Psychiatric Psychiatric exam: Present normal affect and normal mood Skin Skin exam: Present warm, dry, normal color and other (wound on the left buttock cheek is packed with gauze, but there is no obvious discharge, surrounding erythema or tenderness); Absent rash or mottled Course Course Course Narrative: 0007: Sepsis alert initiated. Orders made at this time are congruent with ED Adult Sepsis Order List. Re-evaluation is to be completed. CXR is ordered for determining the etiology of fever. 0158: NS IVF infused. 0228: Sepsis reassessment performed consisting of lab review, vitals, physical exam including auscultation of heart, lungs, and visual evaluation of capillary refills, mucosal membranes and extremities. Quality Measures Possible source: bone/joint Blood cultures ordered: yes Antibiotic ordered: Yes Pertinent labs: 06/14/24 00:28 Lactic Acid 1.0 mMol/L (0.4-2.0) Procalcitonin 0.16 ng/ml (0.0-0.49) sepsis Orders Category Date Time Status Laborer [place] STAT Care 06/14/24 00:10 Active Continuous Pulse Oximetry STAT Care 06/14/24 00:10 Completed EKG (ED ONLY) *Do not use* NOW Care 06/14/24 00:11 Completed Insert IV NOW Care 06/14/24 00:10 Active NPO STAT Care 06/14/24 00:10 Active Strict Intake and Output Routine Care 06/14/24 00:[address] chest abdomen pelvis wo Stat Exams 06/14/24 03:09 Taken EKG (ED Only) Stat Exams 06/14/24 00:10 Draft XR chest 1V SEPSIS PROTOCOL Stat Exams 06/14/24 00:11 Taken B-Type Natriuretic Peptide Stat Lab 06/14/24 00:28 Completed Blood Culture (Lab) Stat Lab 06/14/24 00:28 Received CBC Stat Lab 06/14/24 00:28 Completed Comprehensive Metabolic Panel Stat Lab 06/14/24 00:28 Completed LDH (Lactate Dehydrogenase) Stat Lab 06/14/24 00:28 Completed Lactate (Lactic Acid) Stat Lab 06/14/24 00:28 Completed Lipase Stat Lab 06/14/24 00:28 Completed Magnesium Stat Lab 06/14/24 00:28 Completed Partial Thromboplastin Time Stat Lab 06/14/24 00:28 Completed Phosphorous Stat Lab 06/14/24 00:28 Completed Procalcitonin Stat Lab 06/14/24 00:28 Completed Prothrombin Time with INR Stat Lab 06/14/24 00:28 Completed Troponin I Stat Lab 06/14/24 00:28 Completed Urinalysis Stat Lab 06/14/24 01:03 Completed Urine Culture Stat Lab 06/14/24 00:59 Received Doxycycline Inj [Vibramycin Inj] 100 mg Med 06/14/24 09:00 Pending Sodium Chloride 0.9% (P) [NS 0.9% mini bag] 100 ml IV BID Doxycycline Inj [Vibramycin Inj] 100 mg Med 06/14/24 05:30 Active Sodium Chloride 0.9% (P) [NS 0.9% mini bag] 100 ml IV X1 Ketorolac Inj [Toradol Inj] Med 06/14/24 00:42 Discontinued 30 mg IVP X1 ONE Sodium Chloride 0.9% 1000 ml [Ns] 1,845 ml Med 06/14/24 00:10 Discontinued IV 1,845 mls/hr cefTRIAXone/D5w 1gm IV premix [Rocephin/D5w 1gm IV Med 06/14/24 05:26 Pending premix] 50 ml IV QDAY cefTRIAXone/D5w 1gm IV premix [Rocephin/D5w 1gm IV Med 06/14/24 05:30 Active premix] 50 ml IV X1 Oxygen Delivery NOW RT 06/14/24 00:10 Active Vital Signs Vital signs: Vital Signs Temperature 99.0 F 06/13/24 23:38 Pulse Rate 116 H 06/13/24 23:38 Respiratory Rate 17 06/13/24 23:38 Blood Pressure 118/71 06/13/24 23:38 Pulse Oximetry (%) 94 L 06/13/24 23:38 Oxygen Delivery Method Room Air 06/13/24 23:38 Fever Patient data External records reviewed:: [facility] previous records (Per chart review, patient was seen and admitted here on 06/01/24 for osteomyelitis.) Clinical information provided by:: patient and family Social determinants that could affect healthcare access:: housing (Pt resides in a SNF.) Patient has the following chronic illnesses:: subsequent paraplegia, neurogenic bladder requiring straight catheterization and sacral ulcers How is presenting disease/condition affected by chronic disease/condition?: caused by Evaluation data The following diagnostics were reviewed and interpreted by me:: lab results, radiology exam(s) and EKG tracing(s) Lab and/or radiology exams considered but not ordered:: none Interpretation Summary: WBC count is elevated at 13.2, Potassium is slightly low at 3.3, Lactic Acid is normal, Troponin is normal, BNP is normal, Procalcitonin is normal, UA shows 1+ protein, according to my interpretation. CXR cannot r/o lower left pneumonia, but is negative for cardiomegaly and pneumothorax, according to my interpretation. EKG done at 0042, NSR, rate of 98, good R wave progression, nonspecific ST-T wave changes in lead III, no STEMI, QTc is normal, according to my interpretation. Medications / Prescriptions Medications or Prescriptions considered but not ordered:: none Medication administrations:: Medication Administration History Ceftriaxone Sodium/Dextrose (Rocephin/D5w 1gm Iv Premix) 50 mls @ 100 mls/hr IV QDAY KRISTINA Stop: 06/21/24 05:25 Doxycycline Hyclate 100 mg/ (Sodium Chloride) 100 mls @ 100 mls/hr IV BID KRISTINA Stop: 06/21/24 08:59 Ceftriaxone Sodium/Dextrose (Rocephin/D5w 1gm Iv Premix) 50 mls @ 100 mls/hr IV X1 ONE Stop: 06/14/24 05:59 Doxycycline Hyclate 100 mg/ (Sodium Chloride) 100 mls @ 100 mls/hr IV X1 ONE Stop: 06/14/24 06:29 Discontinued Medications Sodium Chloride (Ns) 1,845 mls @ 1,845 mls/hr 30 ml/kg infuse over 60 min (1845 ml) IV .Q1H ONE Stop: 06/14/24 01:09 Last Infusion: 06/14/24 01:58 Dose: Infused Documented By: Admin: 06/14/24 00:44 Dose: 1,845 mls/hr Documented By: LEONIDAS Ketorolac Tromethamine (Ketorolac Inj 30 Mg/Ml Vial) 30 mg IVP X1 ONE Stop: 06/14/24 00:43 Last Admin: 06/14/24 00:46 Dose: 30 mg Documented By: LEONIDAS see above Consultations Consultation(s) initiated? (list below): No Diagnosis Fever Differential Diagnosis: sepsis and other (worsening sacral ulcer, osteomyelitis, UTI, viral syndrome) Most likely diagnosis given after review of the tests above:: see below Admission Indicated Admission indicated?: not indicated Admission Request Was there a request for admission?: No Disposition Plan Disposition Plan: other (specify) (Signed out to Dr. Menendez at [address] Discharge Plan Plan Disposition Comment: Stable at sign out Prescriptions/Referrals Prescriptions/Med Rec: No Action baclofen 20 MG tablet 20 mg PO TID Qty: 0 ceftriaxone 2 gram recon soln 2 g IV QDAY 42 Days doxycycline hyclate 100 mg tablet 100 mg PO BID 42 Days Qty: 84 0RF Referrals: No Primary/Family,Physician [Primary Care Provider] - In 1 week Problem List Clinical Impression: Fever, History of osteomyelitis Patient/Caregiver Discharge Instructions Print Language: Qatari
[2024-06-14] MEDS: SODIUM CHLORIDE 0.9% 1000 ML 1,845 ML 1845 ML IV (00:44)
[2024-06-14] MEDS: KETOROLAC INJ 30 MG/ML VIAL IVP (00:46)
[2024-06-14 00:51] LABS: Basophils # (Auto) 0.1 Thou/mm3 (0.0-0.2); Basophils % (Auto) 1 % (0-2.5); Eosinophils # (Auto) 0.3 Thou/mm3 (0.0-0.5); Eosinophils % (Auto) 2 % (0-10); Hematocrit 30.1 % (41.0-53.0); Hemoglobin 9.6 g/dL (13.5-16.0); Immature Granulocytes % (Auto) 1 % (0-0); Immature Granulocytes Auto 0.07 Thou/mm3 (0.00-0.00); Lymphocytes # (Auto) 2.5 Thou/mm3 (1.0-4.8); Lymphocytes % (Auto) 19 % (10-50); Mean Corpuscular HGB Conc 31.9 g/dl (31.0-37.0); Mean Corpuscular Hemoglobin 27.7 pg (25.0-35.0); Mean Corpuscular Volume 87 fL (80-100); Monocytes # (Auto) 0.8 Thou/mm3 (0.0-0.8); Monocytes % (Auto) 6 % (0-12); Neutrophils # (Auto) 9.5 Thou/mm3 (1.8-7.7); Neutrophils % (Auto) 72 % (37-80); Nucleated Red Blood Cell % 0 /100 WBC (0); Platelet Count 453 Thou/mm3 (140-440); RDW Standard Deviation 41.7 fL (35.1-43.9); Red Blood Count 3.47 Miln/mm3 (4.50-5.90); White Blood Count 13.2 Thou/mm3 (3.8-10.6)
--- NOTE | 2024-06-14 01:08 | PC.NURSE ---
OK FROM DR VELA TO USE PATIENTS PICC LINE. BLOOD RETURN IN BOTH LINES
[2024-06-14 01:10] LABS: INR 1.2 (0.9-1.3); Partial Thromboplastin Time 30.9 Seconds (22.0-36.0); Prothrombin Time 12.6 Seconds (9.0-12.2)
[2024-06-14 01:14] LABS: Collection Type, Urine Clean Catch; RBC,Urine 0 /hpf (0-3); Squamous Epithelial Cell,Urine 0 /hpf (0-5); WBC,Urine 0 /hpf (0-5)
[2024-06-14 01:19] LABS: Alanine Aminotransferase 22 U/L (10-49); Albumin, Serum 3.9 gm/dL (3.5-5.0); Albumin/Globulin Ratio 1.3 (1.2-2.2); Alkaline Phosphatase 95 U/L (46-116); Anion Gap 7 (7-16); Aspartate Amino Transferase 17 U/L (0-34); BUN/Creatinine Ratio 19 Ratio (12-20); Bilirubin,Total 0.3 mg/dL (0.3-1.2); Blood Urea Nitrogen 15 mg/dL (9-23); Calcium 8.5 mg/dL (8.3-10.6); Calcium (Corrected) 8.6 mg/dL (8.5-10.1); Carbon Dioxide 26.5 mMol/L (20.0-31.0); Chloride 103 mMol/L (98-107); Creatinine (Component) 0.8 mg/dL (0.6-1.3); Globulin 3.1 gm/dL (2.3-3.5); Glucose 118 mg/dL (74-106); LDH (Lactate Dehydrogenase) 200 U/L (120-246); Lipase 37 U/L (12-53); Osmolality,Calculated 273 (275-295); Phosphorous 3.3 mg/dL (2.4-5.1); Potassium 3.3 mMol/L (3.4-5.1); Procalcitonin 0.16 ng/ml (0.0-0.49); Sodium 136 mMol/L (136-145); Troponin I < 0.002 ng/mL (0.0-0.045); eGFR > 60 See Note
[2024-06-14 01:26] LABS: Bilirubin,Urine Negative (Negative); Blood,Urine Negative (Negative); Clarity,Urine Clear (Clear/Hazy); Color,Urine Yellow (Lt Yel-Yel); Glucose, Urine Negative (Negative); Ketones,Urine Negative (Negative); Leukocyte Esterase,Urine Negative (Negative); Nitrite,Urine Negative (Negative); PH,Urine 6.5 (5.0-7.0); Protein,Urine 1+ (Neg - Trace); Specific Gravity,Urine 1.028 (1.001-1.035); Urobilinogen,Urine Negative mg/dL (0.0-1.0)
[2024-06-14 01:54] LABS: B-Type Natriuretic Peptide < 20 pg/mL (0-100)
--- NOTE | 2024-06-14 03:09 | XR_ITS ---
Examination: CT chest, without intravenous contrast. CT abdomen, without intravenous contrast. CT pelvis, without intravenous contrast. 2-D sagittal and coronal reconstructions. 3-D reconstructions. Date and time of exam:June 14, 2024 0353 hrs. Indications: Fever today with redness swelling and pain involving the left buttock region beginning 2 days ago CTDI vol (mgy) 7.89 DLP (MGycm)620 Technique: Multiple CT images, 3.0 mm slice thickness, obtained chest, abdomen, pelvis, with the high-resolution 64 slice scanner.. Sagittal and coronal 2-D reconstructions are obtained. 3-D reconstructions Low dose protocols were performed. One or more of the following dose reduction techniques were used; automated exposure control, adjustment of the mA and/or KV according to patient size, use of iterative reconstruction technique. Findings: No thoracic aortic aneurysm dilatation Pulmonary artery segments are not enlarged Pericardial effusion measuring up to 10 mm in thickness Bibasilar atelectasis versus mild pneumonia No focal liver or splenic lesions Contracted gallbladder No pancreatic or adrenal mass Minimal bilateral hydronephrosis no ureteral calculi. Aorta normal size Normal appendix Urinary bladder wall thickening, mild Abundant stool in the rectum Urinary Ward catheter Soft tissue defect with air densities left buttock which extends all way to the left ischium mariusz cortical bone destruction involving the left ischium No fluid-filled drainable abscess Milder cellulitis in the right buttock region Impression: Bibasilar atelectasis versus mild pneumonia Large soft tissue defect with air densities in the left buttock extending to the left ischium Osteomyelitis left ischium
[2024-06-14] MEDS: cefTRIAXone/D5w 1gm IV premix 50 ML IV (06:01)
[2024-06-14] MEDS: DOXYCYCLINE INJ 100 MG in SODIUM CHLORIDE 0.9% (P) 100 ML IV (06:04)
--- NOTE | 2024-06-14 06:39 | PRELIM_ITS ---
CT scan of the chest, abdomen and pelvis without intravenous contrast (axial sections with sagittal a nd coronal reformats) June 14, 2024 at 0353 hours Clinical History: 39 yo with fever. History of left buttuck infection. Reference is made to the prior report dated June 01, 2024. Findings:There is subsegmental atelectasis in the left lower lobe. Bibasilar streaky atelectasis is present. There is no pleural effusion or pneumothorax. The aorta is unremarkable on this noncontrast study. There ar e few prominent mediastinal lymph nodes . There is no pericardial effusion. There is a 3.5 x 4 cm per icardial cyst . The left hemidiaphragm is elevated . The gallbladder is contracted . There is bilater al mild hydronephrosis without obstructing calculi . The liver, spleen, pancreas and adrenals are unr emarkable on this noncontrast study.No evidence of bowel obstruction. A moderate amount of fecal mate rial is present in the colon. The rectum is distended with fecal material. The appendix is within no rmal limits (images [id number]).There is folys catheter in the urinary bladder. The urinary bladder is d istended with mild wall thickening and perivesical fat stranding. There is no free fluid or free air. Inferior vena cava filter present. Posterior spinal fixation of the dorsal spine.Decubitus wound at the level of the left buttock with stranding and multiple air loculi extending to the left ischial t uberosity with lytic changes of the left ischium. Mild edema and fat stranding in the right buttock . Impression:1. Left buttock decubitus wound associated with osteomyelitis. 2. Findings suggestive of cystitis. Recommend clinical and laboratory correlation. 3. Fecal impaction.4. Other findings as desc ribed above. Report Electronically Signed By: Wilber Redmond 06/14/2024 6:38:09 AM [EST]
--- NOTE | 2024-06-14 07:06 | EDNOTE_ITS ---
Emergency Room Addendum <Lexi Lewis - Last Filed: 06/14/24 08:35> Addendum Narrative: 0600: Care assumed from , the previous shift emergency physician. Past medical, surgical, social and family history reviewed. Vitals and home medications reviewed. I will assume the care of the patient at this time, pending CT report and final disposition. Please refer to the emergency department record for history and examination from initial visit.? EMS notes reviewed by me. Nursing notes reviewed by me. Vital signs reviewed by me. halfway records reviewed by me. [facility] medical records reviewed by me. RADIOLOGY Ordering Physician: Date of Service: Procedure(s): Accession Number(s): cc: ~ CT scan of the chest, abdomen and pelvis without intravenous contrast (axial sections with sagittal and coronal reformats) June 14, 2024 at 0353 hours Clinical History: 39 yo with fever. History of left buttuck infection. Reference is made to the prior report dated June 01, 2024. Findings: There is subsegmental atelectasis in the left lower lobe. Bibasilar streaky atelectasis is present. There is no pleural effusion or pneumothorax. The aorta is unremarkable on this noncontrast study. There are few prominent mediastinal lymph nodes . There is no pericardial effusion. There is a 3.5 x 4 cm pericardial cyst . The left hemidiaphragm is elevated . The gallbladder is contracted . There is bilateral mild hydronephrosis without obstructing calculi . The liver, spleen, pancreas and adrenals are unremarkable on this noncontrast study. No evidence of bowel obstruction. A moderate amount of fecal material is present in the colon. The rectum is distended with fecal material. The appendix is within normal limits (images [id number]). There is folys catheter in the urinary bladder. The urinary bladder is distended with mild wall thickening and perivesical fat stranding. There is no free fluid or free air. Inferior vena cava filter present. Posterior spinal fixation of the dorsal spine. Decubitus wound at the level of the left buttock with stranding and multiple air loculi extending to the left ischial tuberosity with lytic changes of the left ischium. Mild edema and fat stranding in the right buttock . Impression: 1. Left buttock decubitus wound associated with osteomyelitis. 2. Findings suggestive of cystitis. Recommend clinical and laboratory correlation. 3. Fecal impaction. 4. Other findings as described above. Report Electronically Signed By: Wilber Redmond 06/14/2024 6:38:09 AM [EST] <Brian Menendez MD - Last Filed: 06/14/24 09:59> Addendum Narrative: 0600: Care assumed from , the previous shift emergency physician. Past medical, surgical, social and family history reviewed. Vitals and home medications reviewed. I will assume the care of the patient at this time, pending CT report and final disposition. Please refer to the emergency department record for history and examination from initial visit.? EMS notes reviewed by me. Nursing notes reviewed by me. Vital signs reviewed by me. halfway records reviewed by me. [facility] records reviewed by me. RADIOLOGY Ordering Physician: Date of Service: Procedure(s): Accession Number(s): cc: ~ CT scan of the chest, abdomen and pelvis without intravenous contrast (axial sections with sagittal and coronal reformats) June 14, 2024 at 0353 hours Clinical History: 39 yo with fever. History of left buttuck infection. Reference is made to the prior report dated June 01, 2024. Findings: There is subsegmental atelectasis in the left lower lobe. Bibasilar streaky atelectasis is present. There is no pleural effusion or pneumothorax. The aorta is unremarkable on this noncontrast study. There are few prominent mediastinal lymph nodes . There is no pericardial effusion. There is a 3.5 x 4 cm pericardial cyst . The left hemidiaphragm is elevated . The gallbladder is contracted . There is bilateral mild hydronephrosis without obstructing calculi . The liver, spleen, pancreas and adrenals are unremarkable on this noncontrast study. No evidence of bowel obstruction. A moderate amount of fecal material is present in the colon. The rectum is distended with fecal material. The appendix is within normal limits (images [id number]). There is folys catheter in the urinary bladder. The urinary bladder is distended with mild wall thickening and perivesical fat stranding. There is no free fluid or free air. Inferior vena cava filter present. Posterior spinal fixation of the dorsal spine. Decubitus wound at the level of the left buttock with stranding and multiple air loculi extending to the left ischial tuberosity with lytic changes of the left ischium. Mild edema and fat stranding in the right buttock . Impression: 1. Left buttock decubitus wound associated with osteomyelitis. 2. Findings suggestive of cystitis. Recommend clinical and laboratory correlation. 3. Fecal impaction. 4. Other findings as described above. Report Electronically Signed By: Wilber Redmond 06/14/2024 6:38:09 AM [EST] The patient was signed out to me from Dr. Denton at 6:[address], which has resulted and the report is as above. The latest vital signs including a blood pressure 112/70, pulse of 97, respiration is normal, [place] 98 degree and pulse ox of 98% on room air. 7:20 AM, I spoke to Dr. Montesinos, resident hospitalist on-call. She accepted the patient for admission. As of 9:58 AM, admission order has been put in. However the name of the attending hospitalist is unknown. Critical care time is approximately 35 minutes excluding any procedure. The high probability of sudden, clinically significant deterioration in the patient?s condition required the highest level of my preparedness to intervene urgently. The services I provided to this patient were to treat and/or prevent clinically significant deterioration. Services included the following: chart data review, reviewing nursing notes and/or old charts, documentation time, senior telecommunications consultant collaboration regarding findings and treatment options, medication orders and management, direct patient care, vital sign assessments and ordering, interpreting and reviewing diagnostic studies and lab tests. Aggregate critical care time includes only time during which I was engaged in work directly related to the patient?s care, as described above, whether at bedside or elsewhere in the Emergency Department. It did not include time spent performing other reported procedures or the services of residents, students, nurses or physician assistants. Diagnosis: Decubitus ulcers with osteomyelitis Sepsis alert Condition: Stable and improved for admission
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
[2024-06-14] MEDS: ASCORBIC ACID 250 MG TABLET 500 MG PO ×2 (09:37→21:42)
[2024-06-14] MEDS: VANCOMYCIN/NS 1 GM IVPB 200 ML IV (09:38)
[2024-06-14] MEDS: PANTOPRAZOLE 40 MG TABLET PO (09:38)
[2024-06-14] MEDS: ZINC SULFATE 220 MG CAPSULE PO (09:38)
[2024-06-14] MEDS: MULTIVITAMINS TABLET 1 TAB PO (09:38)
[2024-06-14] MEDS: HEPARIN SOD INJ 5000 UNIT/ML VIAL SC ×2 (09:39→21:46)
[2024-06-14] MEDS: POTASSIUM CHLORIDE 20 mEq TABCR PO (10:02)
[2024-06-14] MEDS: ONDANSETRON INJ 2 MG/ML INJ 2 ML 4 MG IV (10:38)
[2024-06-14] MEDS: VANCOMYCIN/WATER 1250 MG IVPB 250 ML 120 MG IV (21:42)
[2024-06-15] VITALS (20 sets, daily range): BP systolic 91–131; BP diastolic 49–80; PULSE 81–120; RESP 13–98; TEMP 36.8–37.8; O2SAT 96–100
--- NOTE | 2024-06-15 | PC.NURSE ---
PICC line one lumen not functioning well, occluded unable to flush. MD Lobato aware.
--- NOTE | 2024-06-15 00:05 | PC.NURSE ---
Called Dr. Lobato regarding patient's vital signs, temp 99.5, HR 120, BP 104/51, O2 96% RA, 19 RR. Noticed previous from previous VS checks, HR and temp trending up. Patient has no other symptoms except feeling cold. Per Doctor give tylenol and bolus 250 cc NS.
[2024-06-15] MEDS: ACETAMINOPHEN 325 MG TABLET 650 MG PO (00:20)
[2024-06-15] MEDS: SODIUM CHLORIDE 0.9% 250 ML 250 ML 999 ML IV (00:21)
--- NOTE | 2024-06-15 02:05 | PC.NURSE ---
Patient c/o sweating profusely, states this is not normal now , no symptoms reported. V/S checked, temp 98.3 oral, BP 99/61, HR 96, O2 96%, [address] Lobato made aware.
--- NOTE | 2024-06-15 02:23 | PC.NURSE ---
Dr. Lobato at bedside to assess patient. Denied any pain, chills, N/V, only sweating.
[2024-06-15 05:51] LABS: Basophils % (Auto) 0 % (0-2.5); Eosinophils # (Auto) 0.3 Thou/mm3 (0.0-0.5); Eosinophils % (Auto) 3 % (0-10); Hematocrit 28.2 % (41.0-53.0); Immature Granulocytes % (Auto) 0 % (0-0); Immature Granulocytes Auto 0.04 Thou/mm3 (0.00-0.00); Lymphocytes # (Auto) 2.3 Thou/mm3 (1.0-4.8); Lymphocytes % (Auto) 23 % (10-50); Mean Corpuscular HGB Conc 31.2 g/dl (31.0-37.0); Mean Corpuscular Hemoglobin 27.2 pg (25.0-35.0); Mean Corpuscular Volume 87 fL (80-100); Monocytes # (Auto) 0.6 Thou/mm3 (0.0-0.8); Monocytes % (Auto) 6 % (0-12); Neutrophils # (Auto) 6.7 Thou/mm3 (1.8-7.7); Neutrophils % (Auto) 68 % (37-80); Nucleated Red Blood Cell % 0 /100 WBC (0); Platelet Count 359 Thou/mm3 (140-440); RDW Standard Deviation 42.1 fL (35.1-43.9); Red Blood Count 3.23 Miln/mm3 (4.50-5.90); White Blood Count 9.9 Thou/mm3 (3.8-10.6)
[2024-06-15 06:03] LABS: Hemoglobin 8.8 g/dL (13.5-16.0)
[2024-06-15 06:25] LABS: Anion Gap 9 (7-16); BUN/Creatinine Ratio 22 Ratio (12-20); Blood Urea Nitrogen 13 mg/dL (9-23); Calcium 8.5 mg/dL (8.3-10.6); Carbon Dioxide 26.4 mMol/L (20.0-31.0); Chloride 105 mMol/L (98-107); Creatinine (Component) 0.6 mg/dL (0.6-1.3); Estimated Creatinine Clearance 162.2 mL/min (>60); Glucose 101 mg/dL (74-106); Osmolality,Calculated 279 (275-295); Phosphorous 3.9 mg/dL (2.4-5.1); Potassium 3.6 mMol/L (3.4-5.1); Sodium 140 mMol/L (136-145); eGFR > 60 See Note
[2024-06-15 06:35] LABS: INR 1.1 (0.9-1.3); Partial Thromboplastin Time 31.3 Seconds (22.0-36.0); Prothrombin Time 12.1 Seconds (9.0-12.2)
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
--- NOTE | 2024-06-15 07:46 | PC.NURSE ---
Received Call from this morning asking to make patient NPO. Plan is to take patient down for I&D.
[2024-06-15] MEDS: cefTRIAXone 2 GM in SODIUM CHLORIDE 0.9% (P) 50 ML IV (08:25)
--- NOTE | 2024-06-15 08:56 | ESPR_ITS ---
Subjective Subjective Interval history: on rocephin. off doxy re-admitted for fever. bc neg so far. procal neg. so may have been viral. Exam Vital Signs Temp Pulse Resp BP Pulse Ox O2 Del Method 99.3 F 97 16 108/66 99 Room Air 06/15/24 07:59 06/15/24 07:59 06/15/24 07:59 06/15/24 07:59 06/15/24 07:59 06/15/24 07:59 Narrative Exam stable exam. no new findings. paraplegic as noted. Objective - Internal Medicine Labs 06/15/24 04:53 06/15/24 04:53 Labs: Laboratory Results - last 24 hr 06/15/24 04:53 WBC 9.9 RBC 3.23 L Hgb 8.8 L Hct 28.2 L MCV 87 MCH 27.2 MCHC 31.2 RDW Std Deviation 42.1 Plt Count 359 D Neut % (Auto) 68 Lymph % (Auto) 23 [place] % (Auto) 6 Eos % (Auto) 3 Baso % (Auto) 0 Neut # (Auto) 6.7 Lymph # (Auto) 2.3 [place] # (Auto) 0.6 Eos # (Auto) 0.3 Baso # (Auto) 0.0 Immature Gran # (Auto) 0.04 H Absolute Nucleated RBC 0.00 Immature Gran % 0 Nucleated RBC % 0 PT 12.1 INR 1.1 APTT 31.3 Sodium 140 Potassium 3.6 Chloride 105 Carbon Dioxide 26.4 Anion Gap 9 BUN 13 Creatinine 0.6 Estim Creat Clear Calc 162.2 eGFR > 60 BUN/Creatinine Ratio 22 H Glucose 101 Calculated Osmolality 279 Calcium 8.5 Phosphorus 3.9 Magnesium 2.0 Assessment & Plan A&P Narrative acute febrile illness. recent dx of pelvic osteo pelvic du paraplegia nb/nb, neg ua noted re-admitted, do not have data to drive any change in rx. off doxy. on rocephin alone. based presumably on swab cx from prior admit fevers may have been viral given normal procal but can not r/o bacterial osteo as a caues of fever. bc only done yesterday so too early to attribute all to virus. to have more surgery today. that is ok Time Spent With Patient Time: Total time spent is greater than 50% in coordination of care (as documented) at patient's floor/unit and/or counseling patient:
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
[2024-06-15] MEDS: VANCOMYCIN/WATER 1250 MG IVPB 250 ML 120 MG IV ×2 (10:16→22:56)
--- NOTE | 2024-06-15 13:09 | PD.SURCONS ---
HPI Consult details Consult date: 06/15/24 Reason for consultation narrative: Patient was seen in consultation because of necrotic base over the left ischial decubitus History of present illness: Patient has had longtime decubitus ulcer and he was recently in the hospital and was discharged Meds Home Medications and Allergies Home Medications ?Medication ?Instructions ?Recorded ?Confirmed ?Type baclofen 20 mg tablet 20 mg PO TID #0 tabs 05/18/17 06/14/24 History Allergies Allergy/AdvReac Type Severity Reaction Status Date / Time No Known Allergies Allergy Verified 11/11/18 18:07 Exam Vital Signs Temp Pulse Resp BP Pulse Ox O2 Del Method 100.0 F 81 18 111/64 96 Room Air 06/15/24 11:58 06/15/24 11:58 06/15/24 11:58 06/15/24 11:58 06/15/24 11:58 06/15/24 11:58 Routine Rectal Exam Comments: My physical examination revealed a large ischial necrotic ulcer with the center showing some unhealthy tissue Assessment & Plan Additional Assessment Additional comments: Impression: Necrotic ulcer at the ischial level Paraplegia Plan Plan: We shall arrange for debridement today.
--- NOTE | 2024-06-15 14:10 | PD.SUROPNT ---
Date of Procedure 06/15/24 Pre Op Diagnosis Necrotic tissue over the ischial decubitus ulcer left side Post Op Diagnosis Same Procedure Debridement of the necrotic tissue over the left ischial decubitus ulcer Findings Patient is found to have extensive necrosis of the ischial decubitus ulcer which is burrowing deep and require debridement Procedure Description After the patient was brought to the operating room was kept on right lateral position and was given sedation. Because of the paraplegia patient did not have any sensation. Wound was washed with Betadine solution and draped in a sterile manner. Then using a 15 blade knife I excised the necrotic tissue that is located on the bone on the surrounding tissue. This was done very diligently until the bleeding ensued. Bleeding points were controlled with cautery. The wound was extensively irrigated with saline solution and packed with fluff and dressing was applied. Patient tolerated the procedure well Anesthesia MAC Pathology / specimen None Estimated Blood Loss 30 Surgeon Jimena Meade MD Surgical Staff Operation Date: 06/15/24 13:00 <No data on this case meets the specified criteria>
--- NOTE | 2024-06-15 14:11 | SUR.PHASEI ---
pt received from OR in recovery bay 5. pt awake and alert, breathing unlabored on room air. v/s stable. pt dressing to left hip cdi. report received from Dr. Briones and Margie EDWARDS.
--- NOTE | 2024-06-15 14:45 | SUR.PHASEI ---
pt awake and alert, breathing unlabored on room air. v/s stable. pt dressing to left hip cdi. report called to Brittanie EDWARDS. pt will be transferred at this time.
[2024-06-15] MEDS: HEPARIN SOD LOCK SYR 100 UNIT/ML IV (15:02)
--- NOTE | 2024-06-15 15:15 | PC.NURSE ---
Notified that hep lock flush was successful and we can now use both lumens on picc line
[2024-06-15] MEDS: ASCORBIC ACID 250 MG TABLET 500 MG PO (20:43)
[2024-06-15] MEDS: HEPARIN SOD INJ 5000 UNIT/ML VIAL SC (20:43)
[2024-06-15 22:19] LABS: Vancomycin,Trough 16.7 mcg/mL (5.0-10.0)
[2024-06-16] VITALS (9 sets, daily range): BP systolic 87–132; BP diastolic 49–64; PULSE 87–115; RESP 16–99; TEMP 36.2–37.5; O2SAT 95–98
--- NOTE | 2024-06-16 00:12 | PC.NURSE ---
called Dr. Parikh regarding patient's BP of 87/49, HR 112, T 99.4. New orders received.
[2024-06-16] MEDS: SODIUM CHLORIDE 0.9% 500 ML 500 ML 999 ML IV ×2 (00:44→02:43)
--- NOTE | 2024-06-16 02:40 | PC.NURSE ---
called Dr. Tate regarding patient's BP after 500cc NS bolus. BP 91/49, HR 111. Patient is asymptomatic. New order received to give 500 cc bolus.
[2024-06-16 06:11] LABS: Basophils # (Auto) 0.1 Thou/mm3 (0.0-0.2); Basophils % (Auto) 1 % (0-2.5); Eosinophils # (Auto) 0.3 Thou/mm3 (0.0-0.5); Eosinophils % (Auto) 3 % (0-10); Hematocrit 27.9 % (41.0-53.0); Immature Granulocytes % (Auto) 1 % (0-0); Immature Granulocytes Auto 0.05 Thou/mm3 (0.00-0.00); Lymphocytes # (Auto) 2.2 Thou/mm3 (1.0-4.8); Lymphocytes % (Auto) 20 % (10-50); Mean Corpuscular HGB Conc 31.5 g/dl (31.0-37.0); Mean Corpuscular Hemoglobin 27.3 pg (25.0-35.0); Mean Corpuscular Volume 87 fL (80-100); Monocytes # (Auto) 0.8 Thou/mm3 (0.0-0.8); Monocytes % (Auto) 7 % (0-12); Neutrophils # (Auto) 7.3 Thou/mm3 (1.8-7.7); Neutrophils % (Auto) 69 % (37-80); Nucleated Red Blood Cell % 0 /100 WBC (0); Platelet Count 414 Thou/mm3 (140-440); RDW Standard Deviation 42.4 fL (35.1-43.9); Red Blood Count 3.22 Miln/mm3 (4.50-5.90); White Blood Count 10.6 Thou/mm3 (3.8-10.6)
[2024-06-16 06:14] LABS: Hemoglobin 8.8 g/dL (13.5-16.0)
[2024-06-16 06:32] LABS: Anion Gap 8 (7-16); BUN/Creatinine Ratio 22 Ratio (12-20); Blood Urea Nitrogen 13 mg/dL (9-23); Calcium 8.4 mg/dL (8.3-10.6); Carbon Dioxide 27.4 mMol/L (20.0-31.0); Chloride 104 mMol/L (98-107); Creatinine (Component) 0.6 mg/dL (0.6-1.3); Estimated Creatinine Clearance 162.2 mL/min (>60); Glucose 105 mg/dL (74-106); Osmolality,Calculated 277 (275-295); Potassium 3.7 mMol/L (3.4-5.1); Sodium 139 mMol/L (136-145); eGFR > 60 See Note
--- NOTE | 2024-06-16 09:03 | PC.SS ---
SS follow up note; Patient is being followed by ID. Patient had surgery yesterday.
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
--- NOTE | 2024-06-16 09:36 | PD.IDPROG ---
Subjective Subjective Interval history: Bc neg at 48h. ok to finish prior rx as outpt. still seems like he had a virus of some sort. Exam Vital Signs Temp Pulse Resp BP Pulse Ox O2 Del Method 97.1 F 105 H 19 93/59 L 98 Room Air 06/16/24 07:56 06/16/24 07:56 06/16/24 07:56 06/16/24 07:56 06/16/24 07:56 06/16/24 07:56 Narrative Exam not seen Objective - Internal Medicine Labs 06/16/24 05:15 06/16/24 05:15 Labs: Laboratory Results - last 24 hr 06/15/24 06/16/24 21:28 05:15 WBC 10.6 RBC 3.22 L Hgb 8.8 L Hct 27.9 L MCV 87 MCH 27.3 MCHC 31.5 RDW Std Deviation 42.4 Plt Count 414 D Neut % (Auto) 69 Lymph % (Auto) 20 [place] % (Auto) 7 Eos % (Auto) 3 Baso % (Auto) 1 Neut # (Auto) 7.3 Lymph # (Auto) 2.2 [place] # (Auto) 0.8 Eos # (Auto) 0.3 Baso # (Auto) 0.1 Immature Gran # (Auto) 0.05 H Absolute Nucleated RBC 0.00 Immature Gran % 1 H Nucleated RBC % 0 Sodium 139 Potassium 3.7 Chloride 104 Carbon Dioxide 27.4 Anion Gap 8 BUN 13 Creatinine 0.6 Estim Creat Clear Calc 162.2 eGFR > 60 BUN/Creatinine Ratio 22 H Glucose 105 Calculated Osmolality 277 Calcium 8.4 Vancomycin Trough 16.7 H Assessment & Plan A&P Narrative acute febrile illness. recent dx of pelvic osteo pelvic du paraplegia nb/nb, neg ua noted re-admitted, do not have data to drive any change in rx. off doxy. on rocephin alone. based presumably on swab cx from prior admit fevers may have been viral given normal procal but can not r/o bacterial osteo as a cause of fever. ok from my view to send him home on prior rx. will not likely see again in hospital unless requested. Time Spent With Patient Time: Total time spent is greater than 50% in coordination of care (as documented) at patient's floor/unit and/or counseling patient:
--- NOTE | 2024-06-16 09:38 | PC.SS ---
SS follow up note; Patient confirmed prior to admission he was at [facility] for IV ABX. Patient will discharge back to [facility] for IV ABX.
[2024-06-16] MEDS: ASCORBIC ACID 250 MG TABLET 500 MG PO ×2 (10:18→20:06)
[2024-06-16] MEDS: MULTIVITAMINS TABLET 1 TAB PO (10:20)
[2024-06-16] MEDS: PANTOPRAZOLE 40 MG TABLET PO (10:20)
[2024-06-16] MEDS: ZINC SULFATE 220 MG CAPSULE PO (10:20)
[2024-06-16] MEDS: HEPARIN SOD INJ 5000 UNIT/ML VIAL SC ×2 (10:21→21:29)
[2024-06-16] MEDS: cefTRIAXone 2 GM in SODIUM CHLORIDE 0.9% (P) 50 ML IV (10:21)
[2024-06-16] MEDS: VANCOMYCIN/WATER 1250 MG IVPB 250 ML 120 MG IV (10:22)
[2024-06-16] MEDS: SODIUM CHLORIDE 0.9% 500 ML 500 ML 125 ML IV ×3 (12:39→23:11)
[2024-06-16] MEDS: HEPARIN SOD LOCK SYR 100 UNIT/ML 500 UNIT IV (12:39)
--- NOTE | 2024-06-16 14:04 | CHAP ---
09:30 AM Visited by spiritual care volunteer Provided prayer for Patient.
[2024-06-16] MEDS: DOXYCYCLINE 100 MG TABLET PO (20:06)
[2024-06-17] VITALS (8 sets, daily range): BP systolic 93–119; BP diastolic 59–70; PULSE 87–119; RESP 15–18; TEMP 36.5–38.9; O2SAT 94–98; BMI 28.5
[2024-06-17] MEDS: HEPARIN SOD LOCK SYR 100 UNIT/ML 500 UNIT IV ×2 (05:01→10:31)
[2024-06-17] MEDS: SODIUM CHLORIDE 0.9% 500 ML 500 ML 125 ML IV (05:04)
[2024-06-17 05:38] LABS: Basophils % (Auto) 0 % (0-2.5); Eosinophils # (Auto) 0.3 Thou/mm3 (0.0-0.5); Eosinophils % (Auto) 3 % (0-10); Hematocrit 27.9 % (41.0-53.0); Immature Granulocytes % (Auto) 1 % (0-0); Immature Granulocytes Auto 0.05 Thou/mm3 (0.00-0.00); Lymphocytes # (Auto) 1.8 Thou/mm3 (1.0-4.8); Lymphocytes % (Auto) 20 % (10-50); Mean Corpuscular HGB Conc 31.5 g/dl (31.0-37.0); Mean Corpuscular Hemoglobin 27.4 pg (25.0-35.0); Mean Corpuscular Volume 87 fL (80-100); Monocytes # (Auto) 0.6 Thou/mm3 (0.0-0.8); Monocytes % (Auto) 7 % (0-12); Neutrophils # (Auto) 6.2 Thou/mm3 (1.8-7.7); Neutrophils % (Auto) 69 % (37-80); Nucleated Red Blood Cell % 0 /100 WBC (0); Platelet Count 292 Thou/mm3 (140-440); RDW Standard Deviation 42.1 fL (35.1-43.9); Red Blood Count 3.21 Miln/mm3 (4.50-5.90)
[2024-06-17 05:44] LABS: Hemoglobin 8.8 g/dL (13.5-16.0)
[2024-06-17 06:16] LABS: Anion Gap 9 (7-16); BUN/Creatinine Ratio 12 Ratio (12-20); Blood Urea Nitrogen 7 mg/dL (9-23); Carbon Dioxide 24.1 mMol/L (20.0-31.0); Chloride 106 mMol/L (98-107); Creatinine (Component) 0.6 mg/dL (0.6-1.3); Estimated Creatinine Clearance 162.2 mL/min (>60); Glucose 98 mg/dL (74-106); Osmolality,Calculated 275 (275-295); Potassium 3.6 mMol/L (3.4-5.1); Sodium 139 mMol/L (136-145); eGFR > 60 See Note
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
[2024-06-17] MEDS: MULTIVITAMINS TABLET 1 TAB PO (09:40)
[2024-06-17] MEDS: cefTRIAXone 2 GM in SODIUM CHLORIDE 0.9% (P) 50 ML IV (09:40)
[2024-06-17] MEDS: PANTOPRAZOLE 40 MG TABLET PO (09:40)
[2024-06-17] MEDS: DOXYCYCLINE 100 MG TABLET PO ×2 (09:40→21:47)
[2024-06-17] MEDS: ZINC SULFATE 220 MG CAPSULE PO (09:40)
[2024-06-17] MEDS: ASCORBIC ACID 250 MG TABLET 500 MG PO ×2 (09:40→21:47)
[2024-06-17] MEDS: HEPARIN SOD INJ 5000 UNIT/ML VIAL SC ×2 (09:40→21:47)
[2024-06-17 09:45] LABS: Albumin, Serum 3.4 gm/dL (3.5-5.0)
[2024-06-17] MEDS: SOD HYPOCHLORITE 1/4 STR 473 ML BTL IRRIG ×2 (14:57→22:00)
[2024-06-17] MEDS: ACETAMINOPHEN 325 MG TABLET 650 MG PO (19:57)
[2024-06-18] VITALS (8 sets, daily range): BP systolic 92–110; BP diastolic 56–69; PULSE 100–115; RESP 17–18; TEMP 36.2–39.2; O2SAT 96–98
[2024-06-18] MEDS: HEPARIN SOD LOCK SYR 100 UNIT/ML 500 UNIT IV ×2 (04:55→09:50)
[2024-06-18 06:05] LABS: Basophils # (Auto) 0.1 Thou/mm3 (0.0-0.2); Basophils % (Auto) 1 % (0-2.5); Eosinophils # (Auto) 0.3 Thou/mm3 (0.0-0.5); Eosinophils % (Auto) 3 % (0-10); Hemoglobin 8.9 g/dL (13.5-16.0); Immature Granulocytes % (Auto) 1 % (0-0); Immature Granulocytes Auto 0.06 Thou/mm3 (0.00-0.00); Lymphocytes # (Auto) 1.6 Thou/mm3 (1.0-4.8); Lymphocytes % (Auto) 17 % (10-50); Mean Corpuscular HGB Conc 31.8 g/dl (31.0-37.0); Mean Corpuscular Hemoglobin 27.2 pg (25.0-35.0); Mean Corpuscular Volume 86 fL (80-100); Monocytes # (Auto) 0.7 Thou/mm3 (0.0-0.8); Monocytes % (Auto) 8 % (0-12); Neutrophils # (Auto) 6.5 Thou/mm3 (1.8-7.7); Neutrophils % (Auto) 71 % (37-80); Nucleated Red Blood Cell % 0 /100 WBC (0); Platelet Count 369 Thou/mm3 (140-440); RDW Standard Deviation 41.7 fL (35.1-43.9); Red Blood Count 3.27 Miln/mm3 (4.50-5.90); White Blood Count 9.2 Thou/mm3 (3.8-10.6)
--- NOTE | 2024-06-18 06:27 | PC.NURSE ---
Dr. Lobato notified of patient being febrile this a.m. Patient temp has come down.
[2024-06-18 06:34] LABS: Anion Gap 7 (7-16); BUN/Creatinine Ratio 15 Ratio (12-20); Blood Urea Nitrogen 9 mg/dL (9-23); Calcium 8.6 mg/dL (8.3-10.6); Carbon Dioxide 28.6 mMol/L (20.0-31.0); Chloride 100 mMol/L (98-107); Creatinine (Component) 0.6 mg/dL (0.6-1.3); Estimated Creatinine Clearance 158.9 mL/min (>60); Glucose 114 mg/dL (74-106); Osmolality,Calculated 271 (275-295); Potassium 3.9 mMol/L (3.4-5.1); Sodium 136 mMol/L (136-145); eGFR > 60 See Note
[2024-06-18 08:07] LABS: Procalcitonin 0.18 ng/ml (0.0-0.49)
--- NOTE | 2024-06-18 08:18 | PC.SS ---
SS follow up note; Patient is pending PT eval for SS to submit for auth to [facility].
--- NOTE | 2024-06-18 08:56 | PC.SS ---
SS attempted to contact [employer] in order to obtain auth. SS left voicemail with call back number.
[2024-06-18 09:04] LABS: Sed Rate (ESR) 65 mm/hr (0-15)
--- NOTE | 2024-06-18 09:21 | PC.SS ---
Addendum entered by Alice Gonzalez 06/18/24 12:34: SS attempted to contact Rosangela to inform her that SS faxed all clinicals and emailed to [email or web address]. SS left Voicemail with call back number. Original Note: SS follow up note; SS received a call from Rosangela who is the sample case porter assigned to patient [phone],EXT: [phone]. She informed SS that they will need PT orders and once done she would like for it to be faxed to [phone]. Rosangela also provided Email: [email or web address]. SS will email and fax PT orders when available.
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
[2024-06-18] MEDS: cefTRIAXone 2 GM in SODIUM CHLORIDE 0.9% (P) 50 ML IV (09:48)
[2024-06-18] MEDS: HEPARIN SOD INJ 5000 UNIT/ML VIAL SC ×2 (09:49→20:42)
[2024-06-18] MEDS: ASCORBIC ACID 250 MG TABLET 500 MG PO ×2 (09:49→20:42)
[2024-06-18] MEDS: DOXYCYCLINE 100 MG TABLET PO ×2 (09:49→20:42)
[2024-06-18] MEDS: PANTOPRAZOLE 40 MG TABLET PO (09:49)
[2024-06-18] MEDS: MULTIVITAMINS TABLET 1 TAB PO (09:49)
[2024-06-18] MEDS: ZINC SULFATE 220 MG CAPSULE PO (09:49)
[2024-06-18] MEDS: SOD HYPOCHLORITE 1/4 STR 473 ML BTL IRRIG ×2 (09:51→21:44)
--- NOTE | 2024-06-18 10:42 | XR_ITS ---
Examination: AP chest single view Technique one AP portable upright chest single view Exam date and time: 01/17/2024 1058 hours Comparison 02/11/2019 INDICATIONS: Fever tachycardia today. FINDINGS: Dual lumen right arm central PICC line tip SVC Normal heart size Moderate thoracic dextroscoliosis Subsegmental atelectasis left base no pneumonia identified IMPRESSION: Subsegmental atelectasis left base, no pneumonia identified
[2024-06-18 11:22] LABS: Lactate (Lactic Acid) 1.1 mMol/L (0.4-2.0)
--- NOTE | 2024-06-18 13:42 | PC.SS ---
SS attempted to contact [facility] in regards to obtaining auth. SS left Voicmail for Luz Maria to return SS call back.
[2024-06-18] MEDS: SODIUM CHLORIDE 0.9% 1000 ML 1,000 ML 125 ML IV (15:51)
[2024-06-18 16:36] LABS: Collection Type, Urine Catheter; Squamous Epithelial Cell,Urine 0 /hpf (0-5)
[2024-06-18 16:40] LABS: Bilirubin,Urine Negative (Negative); Blood,Urine Negative (Negative); Clarity,Urine Clear (Clear/Hazy); Color,Urine Colorless (Lt Yel-Yel); Culture Indicated,Urine Not Indicated; Glucose, Urine Negative (Negative); Ketones,Urine Negative (Negative); Leukocyte Esterase,Urine Negative (Negative); Nitrite,Urine Negative (Negative); Protein,Urine Negative (Neg - Trace); RBC,Urine 1 /hpf (0-3); Specific Gravity,Urine 1.007 (1.001-1.035); Urobilinogen,Urine Negative mg/dL (0.0-1.0); WBC,Urine < 1 /hpf (0-5)
--- NOTE | 2024-06-18 23:11 | PC.NURSE ---
MD Lobato asked this nurse regarding frequency of Hep lock order that too close from each other, per MD to follow the order as it was, no new order made at this time.
[2024-06-18] MEDS: ACETAMINOPHEN 325 MG TABLET 650 MG PO (23:41)
[2024-06-19] VITALS (8 sets, daily range): BP systolic 92–115; BP diastolic 47–80; PULSE 93–114; RESP 16–18; TEMP 36.5–38.2; O2SAT 95–99
--- NOTE | 2024-06-19 01:01 | PC.NURSE ---
MD Lobato made aware of BP 94/47 with a MAP of 62, per MD to put order in.
[2024-06-19] MEDS: SODIUM CHLORIDE 0.9% 250 ML 250 ML 999 ML IV (01:10)
[2024-06-19] MEDS: HEPARIN SOD LOCK SYR 100 UNIT/ML 500 UNIT IV ×2 (05:16→09:05)
[2024-06-19 06:00] LABS: Basophils % (Auto) 1 % (0-2.5); Eosinophils # (Auto) 0.3 Thou/mm3 (0.0-0.5); Eosinophils % (Auto) 3 % (0-10); Hematocrit 31.2 % (41.0-53.0); Hemoglobin 9.6 g/dL (13.5-16.0); Immature Granulocytes % (Auto) 1 % (0-0); Immature Granulocytes Auto 0.06 Thou/mm3 (0.00-0.00); Lymphocytes % (Auto) 23 % (10-50); Mean Corpuscular HGB Conc 30.8 g/dl (31.0-37.0); Mean Corpuscular Hemoglobin 26.7 pg (25.0-35.0); Mean Corpuscular Volume 87 fL (80-100); Monocytes # (Auto) 0.7 Thou/mm3 (0.0-0.8); Monocytes % (Auto) 8 % (0-12); Neutrophils # (Auto) 5.7 Thou/mm3 (1.8-7.7); Neutrophils % (Auto) 64 % (37-80); Nucleated Red Blood Cell % 0 /100 WBC (0); Platelet Count 438 Thou/mm3 (140-440); RDW Standard Deviation 42.7 fL (35.1-43.9); Red Blood Count 3.59 Miln/mm3 (4.50-5.90); White Blood Count 8.9 Thou/mm3 (3.8-10.6)
[2024-06-19 06:41] LABS: Alanine Aminotransferase 32 U/L (10-49); Albumin, Serum 3.9 gm/dL (3.5-5.0); Albumin/Globulin Ratio 1.2 (1.2-2.2); Alkaline Phosphatase 90 U/L (46-116); Anion Gap 10 (7-16); Aspartate Amino Transferase 21 U/L (0-34); BUN/Creatinine Ratio 18 Ratio (12-20); Bilirubin,Total 0.3 mg/dL (0.3-1.2); Blood Urea Nitrogen 11 mg/dL (9-23); Calcium 8.9 mg/dL (8.3-10.6); Carbon Dioxide 25.4 mMol/L (20.0-31.0); Chloride 105 mMol/L (98-107); Creatinine (Component) 0.6 mg/dL (0.6-1.3); Estimated Creatinine Clearance 158.9 mL/min (>60); Globulin 3.3 gm/dL (2.3-3.5); Glucose 97 mg/dL (74-106); Magnesium 2.3 mg/dL (1.6-2.6); Osmolality,Calculated 278 (275-295); Sodium 140 mMol/L (136-145); Total Protein 7.2 gm/dL (5.7-8.2); eGFR > 60 See Note
[2024-06-19] MEDS: ZINC SULFATE 220 MG CAPSULE PO (09:02)
[2024-06-19] MEDS: MULTIVITAMINS TABLET 1 TAB PO (09:02)
[2024-06-19] MEDS: cefTRIAXone 2 GM in SODIUM CHLORIDE 0.9% (P) 50 ML IV (09:02)
[2024-06-19] MEDS: RINGERS LACTATED 1000 ML 1,000 ML 125 ML IV (09:03)
[2024-06-19] MEDS: DOXYCYCLINE 100 MG TABLET PO ×2 (09:03→20:25)
[2024-06-19] MEDS: PANTOPRAZOLE 40 MG TABLET PO (09:03)
[2024-06-19] MEDS: ASCORBIC ACID 250 MG TABLET 500 MG PO ×2 (09:03→20:25)
[2024-06-19] MEDS: HEPARIN SOD INJ 5000 UNIT/ML VIAL SC ×2 (09:05→20:26)
[2024-06-19] MEDS: SOD HYPOCHLORITE 1/4 STR 473 ML BTL IRRIG ×2 (09:06→20:26)
--- NOTE | 2024-06-19 09:24 | PC.SS ---
SS follow up note; SS attempted to contact Rosangela as well as Rakel from [place]. SS left Voicemail with call back number.
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
--- NOTE | 2024-06-19 10:36 | PC.SS ---
SS follow up note; SUNNY was able to obtain auth from [employer]. Pending ID rec's as well as Blood cultures.
[2024-06-19 15:34] LABS: Cocci Serology, IgM Positive (Negative)
[2024-06-19 15:35] LABS: Cocid Sro, CF/ID (UCD) NO CHG* See Sep Rpt
[2024-06-20] VITALS: BP 110/60; PULSE 104; RESP 16; TEMP 36.7; O2SAT 98
[2024-06-20 04:00] VITALS: BP 100/61; PULSE 101; RESP 16; TEMP 36.8; O2SAT 98
[2024-06-20] MEDS: HEPARIN SOD LOCK SYR 100 UNIT/ML 500 UNIT IV ×2 (05:47→09:59)
[2024-06-20 05:49] LABS: Basophils % (Auto) 1 % (0-2.5); Eosinophils # (Auto) 0.4 Thou/mm3 (0.0-0.5); Eosinophils % (Auto) 5 % (0-10); Hematocrit 29.2 % (41.0-53.0); Hemoglobin 9.1 g/dL (13.5-16.0); Immature Granulocytes % (Auto) 1 % (0-0); Immature Granulocytes Auto 0.06 Thou/mm3 (0.00-0.00); Lymphocytes % (Auto) 24 % (10-50); Mean Corpuscular HGB Conc 31.2 g/dl (31.0-37.0); Mean Corpuscular Hemoglobin 27.2 pg (25.0-35.0); Mean Corpuscular Volume 87 fL (80-100); Monocytes # (Auto) 0.6 Thou/mm3 (0.0-0.8); Monocytes % (Auto) 7 % (0-12); Neutrophils # (Auto) 5.3 Thou/mm3 (1.8-7.7); Neutrophils % (Auto) 63 % (37-80); Nucleated Red Blood Cell % 0 /100 WBC (0); Platelet Count 430 Thou/mm3 (140-440); RDW Standard Deviation 42.5 fL (35.1-43.9); Red Blood Count 3.35 Miln/mm3 (4.50-5.90); White Blood Count 8.5 Thou/mm3 (3.8-10.6)
[2024-06-20 06:14] LABS: Alanine Aminotransferase 28 U/L (10-49); Albumin, Serum 3.8 gm/dL (3.5-5.0); Albumin/Globulin Ratio 1.2 (1.2-2.2); Alkaline Phosphatase 83 U/L (46-116); Anion Gap 4 (7-16); Aspartate Amino Transferase 15 U/L (0-34); BUN/Creatinine Ratio 17 Ratio (12-20); Bilirubin,Total 0.3 mg/dL (0.3-1.2); Blood Urea Nitrogen 10 mg/dL (9-23); Calcium 8.6 mg/dL (8.3-10.6); Calcium (Corrected) 8.8 mg/dL (8.5-10.1); Carbon Dioxide 27.8 mMol/L (20.0-31.0); Chloride 104 mMol/L (98-107); Creatinine (Component) 0.6 mg/dL (0.6-1.3); Estimated Creatinine Clearance 158.9 mL/min (>60); Globulin 3.1 gm/dL (2.3-3.5); Glucose 104 mg/dL (74-106); Magnesium 2.2 mg/dL (1.6-2.6); Osmolality,Calculated 270 (275-295); Phosphorous 3.8 mg/dL (2.4-5.1); Potassium 3.9 mMol/L (3.4-5.1); Sodium 136 mMol/L (136-145); Total Protein 6.9 gm/dL (5.7-8.2); eGFR > 60 See Note
[2024-06-20 07:40] VITALS: BP 107/68; PULSE 101; RESP 19; TEMP 36.2; O2SAT 97
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
[2024-06-20] MEDS: cefTRIAXone 2 GM in SODIUM CHLORIDE 0.9% (P) 50 ML IV (09:56)
[2024-06-20] MEDS: HEPARIN SOD INJ 5000 UNIT/ML VIAL SC (09:57)
[2024-06-20] MEDS: PANTOPRAZOLE 40 MG TABLET PO (09:58)
[2024-06-20] MEDS: MULTIVITAMINS TABLET 1 TAB PO (09:58)
[2024-06-20] MEDS: DOXYCYCLINE 100 MG TABLET PO (09:58)
[2024-06-20] MEDS: ZINC SULFATE 220 MG CAPSULE PO (09:58)
[2024-06-20] MEDS: FLUCONAZOLE 100 MG TABLET 400 MG PO (09:58)
[2024-06-20] MEDS: ASCORBIC ACID 250 MG TABLET 500 MG PO (09:58)
[2024-06-20] MEDS: SOD HYPOCHLORITE 1/4 STR 473 ML BTL IRRIG (09:59)
[2024-06-20 11:48] VITALS: BP 129/73; PULSE 105; RESP 18; TEMP 36.2; O2SAT 97
== END 2024-06-20 15:03 | disposition skilled nursing facility (03) | DRG 463 ==
LOC: SERX 06-14 05:52 → SERHOLD 06-14 08:36 → S3SX 06-14 12:32
PROVIDERS: Emergency Medicine; Student in an Organized Health Care Education/Training Program; Surgery; Admitting Provider Student in an Organized Health Care Education/Training Program; Emergency Provider Emergency Medicine; Visit Provider Internal Medicine
PROC: 0JBC0ZZ Excision of Pelvic Region Subcutaneous Tissue and Fascia, Open Approach (ICD-10-PCS; principal; 2024-06-15 12:45)
DX: M86.652 Other chronic osteomyelitis, left thigh (principal); L89.154 Pressure ulcer of sacral region, stage 4; G82.20 Paraplegia, unspecified; J98.11 Atelectasis; R65.10 Systemic inflammatory response syndrome (SIRS) of non-infectious origin without acute organ dysfunction; B38.2 Pulmonary coccidioidomycosis, unspecified; N31.9 Neuromuscular dysfunction of bladder, unspecified; Z87.440 Personal history of urinary (tract) infections; E87.6 Hypokalemia; Z87.891 Personal history of nicotine dependence; Z98.1 Arthrodesis status; Z95.828 Presence of other vascular implants and grafts; I95.9 Hypotension, unspecified
CPT/HCPCS: 36415; 71045; 71250; 74176; 80048; 80053; 80202; 81001; 82040; 83605; 83615; 83690; 83735; 83880; 84100; 84145; 84484; 85025; 85610; 85652; 85730; 86140; 86635; 87040; 87081; 87086; 87400; 87811; 93005; 96361; 96365; 96366; 96368; 96372; 96375; 97161; 99285; A4217; A4649; J0696; J1642; J1643; J1885; J2250; J2405; J2704; J3370; J3372; J3490; J7030; J7040; J7050; J7120; A9270; J1644

== ENCOUNTER 2024-06-20 18:36 | Emergency (ER) | payer MEDICARE, MEDICAID, SELFPAY ==
[2024-06-20] VITALS (8 sets, daily range): BP systolic 110–130; BP diastolic 61–72; PULSE 94–122; RESP 17–20; TEMP 39.3; O2SAT 72–100; BMI 26.6
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
--- NOTE | 2024-06-20 19:38 | XR_ITS ---
Examination: AP chest single view Technique one AP portable semiupright chest single view Exam date and time: June 20, 2024 1957 hrs. Indications: Fever today, history coccidioidomycosis Findings: Minor atelectasis left base No lobar pneumonia Normal heart size No pulmonary edema Right arm dual-lumen central PICC line tip SVC Orthopedic hardware overlying dorsal spine Impression: No pneumonia or pulmonary edema
[2024-06-20] MEDS: SODIUM CHLORIDE 0.9% 1000 ML 1,000 ML 999 ML IV (20:08)
[2024-06-20 20:50] LABS: Basophils % (Auto) 0 % (0-2.5); Eosinophils # (Auto) 0.2 Thou/mm3 (0.0-0.5); Eosinophils % (Auto) 2 % (0-10); Hematocrit 28.2 % (41.0-53.0); Immature Granulocytes % (Auto) 1 % (0-0); Immature Granulocytes Auto 0.05 Thou/mm3 (0.00-0.00); Lactate (Lactic Acid) 1.4 mMol/L (0.4-2.0); Lymphocytes % (Auto) 20 % (10-50); Mean Corpuscular HGB Conc 31.9 g/dl (31.0-37.0); Mean Corpuscular Hemoglobin 26.9 pg (25.0-35.0); Mean Corpuscular Volume 84 fL (80-100); Monocytes # (Auto) 0.7 Thou/mm3 (0.0-0.8); Monocytes % (Auto) 7 % (0-12); Neutrophils # (Auto) 6.7 Thou/mm3 (1.8-7.7); Neutrophils % (Auto) 70 % (37-80); Nucleated Red Blood Cell % 0 /100 WBC (0); Platelet Count 442 Thou/mm3 (140-440); RDW Standard Deviation 41.6 fL (35.1-43.9); Red Blood Count 3.34 Miln/mm3 (4.50-5.90); White Blood Count 9.7 Thou/mm3 (3.8-10.6)
[2024-06-20 21:06] LABS: Collection Type, Urine Catheter; Squamous Epithelial Cell,Urine 0 /hpf (0-5)
[2024-06-20 21:09] LABS: Bilirubin,Urine Negative (Negative); Blood,Urine Trace (Negative); Clarity,Urine Clear (Clear/Hazy); Color,Urine Lt-Yellow (Lt Yel-Yel); Culture Indicated,Urine Not Indicated; Glucose, Urine Negative (Negative); Ketones,Urine Negative (Negative); Leukocyte Esterase,Urine Negative (Negative); Nitrite,Urine Negative (Negative); Protein,Urine Negative (Neg - Trace); RBC,Urine 4 /hpf (0-3); Specific Gravity,Urine 1.011 (1.001-1.035); Urobilinogen,Urine Negative mg/dL (0.0-1.0); WBC,Urine 1 /hpf (0-5)
[2024-06-20 21:22] LABS: Alanine Aminotransferase 26 U/L (10-49); Albumin, Serum 3.7 gm/dL (3.5-5.0); Albumin/Globulin Ratio 1.2 (1.2-2.2); Alkaline Phosphatase 86 U/L (46-116); Anion Gap 8 (7-16); Aspartate Amino Transferase 21 U/L (0-34); BUN/Creatinine Ratio 16 Ratio (12-20); Bilirubin,Total 0.3 mg/dL (0.3-1.2); Blood Urea Nitrogen 11 mg/dL (9-23); Calcium 9.1 mg/dL (8.3-10.6); Calcium (Corrected) 9.3 mg/dL (8.5-10.1); Carbon Dioxide 27.9 mMol/L (20.0-31.0); Chloride 102 mMol/L (98-107); Creatinine (Component) 0.7 mg/dL (0.6-1.3); Estimated Creatinine Clearance 125.7 mL/min (>60); Globulin 3.1 gm/dL (2.3-3.5); Glucose 157 mg/dL (74-106); Osmolality,Calculated 278 (275-295); Potassium 3.7 mMol/L (3.4-5.1); Procalcitonin 0.18 ng/ml (0.0-0.49); Sodium 138 mMol/L (136-145); Total Protein 6.8 gm/dL (5.7-8.2); eGFR > 60 See Note
[2024-06-20 22:00] LABS: C-Reactive Protein 11.5 mg/dL (0.0-0.9)
[2024-06-21] VITALS: BP 107/58; PULSE 107; RESP 20; TEMP 37.9; O2SAT 100
[2024-06-21 00:03] VITALS: TEMP 37.9
[2024-06-21] MEDS: IBUPROFEN TAB 400 MG TABLET 800 MG PO (00:03)
--- NOTE | 2024-06-21 00:16 | PC.NURSE ---
REPORT CALLED TO MANAS BOWER AT [facility]. AND ALSO GIVEN TO RADHA- DEPUTY FELONY CLERK. ALL QUESTIONS ASKED AND ANSWERED. PATIENT TAKEN BACK TO [facility]. PICC LINE FLUSHES WITH GOOD BLOOD RETURN IN BOTH PORTS. HERNANDEZ TO BEDSIDE DRAIN. DENIES COMPLAINTS AT TRANSFER.
== END 2024-06-21 00:23 | disposition skilled nursing facility (03) ==
PROVIDERS: Nurse Practitioner Family; Emergency Provider Emergency Medicine; PCP Nurse Practitioner Family
DX: M86.9 Osteomyelitis, unspecified (principal); B38.0 Acute pulmonary coccidioidomycosis; G82.20 Paraplegia, unspecified; L89.324 Pressure ulcer of left buttock, stage 4; N31.9 Neuromuscular dysfunction of bladder, unspecified; Z79.899 Other long term (current) drug therapy; Z87.440 Personal history of urinary (tract) infections; Z87.891 Personal history of nicotine dependence
CPT/HCPCS: 36415; 71045; 80053; 81001; 83605; 84145; 85025; 86140; 87040; 87400; 87811; 96360; 96361; 99284; J7030; A9270

== ENCOUNTER → 2024-10-21 | Outpatient (CLI) | payer MEDICARE, SELFPAY | END | disposition home or self-care (01) | LOC: SWHD 12:54 | PROVIDERS: PCP Family Medicine; Referring Provider Family Medicine; Visit Provider Student in an Organized Health Care Education/Training Program | DX: L89.323 Pressure ulcer of left buttock, stage 3 (principal); T14.8XXS Other injury of unspecified body region, sequela; V89.2XXS Person injured in unspecified motor-vehicle accident, traffic, sequela; F17.200 Nicotine dependence, unspecified, uncomplicated; G82.20 Paraplegia, unspecified | CPT/HCPCS: 99214; G0463 ==

== ENCOUNTER → 2024-10-28 | Outpatient (CLI) | payer MEDICARE, SELFPAY | END | disposition home or self-care (01) | LOC: SWHD 09:03 | PROVIDERS: PCP Emergency Medicine; Referring Provider Emergency Medicine; Visit Provider Surgery | DX: L89.323 Pressure ulcer of left buttock, stage 3 (principal); G82.20 Paraplegia, unspecified; E66.9 Obesity, unspecified; T14.8XXS Other injury of unspecified body region, sequela; V89.2XXS Person injured in unspecified motor-vehicle accident, traffic, sequela | CPT/HCPCS: 11042; A9270 ==

== ENCOUNTER → 2024-11-11 | Outpatient (CLI) | payer MEDICARE, SELFPAY | END | disposition home or self-care (01) | LOC: SWHD 11:02 | PROVIDERS: PCP Emergency Medicine; Referring Provider Emergency Medicine; Visit Provider Student in an Organized Health Care Education/Training Program | DX: L89.324 Pressure ulcer of left buttock, stage 4 (principal); G82.20 Paraplegia, unspecified; E66.9 Obesity, unspecified; T14.8XXS Other injury of unspecified body region, sequela; V89.2XXS Person injured in unspecified motor-vehicle accident, traffic, sequela | CPT/HCPCS: 11042 ==

== ENCOUNTER → 2024-11-30 | Outpatient (CLI) | payer MEDICARE, SELFPAY | END | disposition home or self-care (01) | LOC: SWHD 13:22 | PROVIDERS: PCP Emergency Medicine; Referring Provider Emergency Medicine; Visit Provider Student in an Organized Health Care Education/Training Program | DX: L89.324 Pressure ulcer of left buttock, stage 4 (principal); G82.20 Paraplegia, unspecified; E66.9 Obesity, unspecified; T14.8XXS Other injury of unspecified body region, sequela; V89.2XXS Person injured in unspecified motor-vehicle accident, traffic, sequela | CPT/HCPCS: 97597 ==

== ENCOUNTER → 2024-12-14 | Outpatient (CLI) | payer MEDICARE, SELFPAY | END | disposition home or self-care (01) | LOC: SWHD 13:22 | PROVIDERS: PCP Emergency Medicine; Referring Provider Emergency Medicine; Visit Provider Student in an Organized Health Care Education/Training Program | DX: L89.324 Pressure ulcer of left buttock, stage 4 (principal); G82.20 Paraplegia, unspecified; E66.9 Obesity, unspecified; T14.8XXS Other injury of unspecified body region, sequela; V89.2XXS Person injured in unspecified motor-vehicle accident, traffic, sequela | CPT/HCPCS: 11042 ==

== ENCOUNTER → 2024-12-21 | Outpatient (CLI) | payer MEDICARE, SELFPAY | END | disposition home or self-care (01) | LOC: SWHD 13:44 | PROVIDERS: PCP Emergency Medicine; Referring Provider Emergency Medicine; Visit Provider Student in an Organized Health Care Education/Training Program | DX: L89.324 Pressure ulcer of left buttock, stage 4 (principal); G82.20 Paraplegia, unspecified; T14.8XXS Other injury of unspecified body region, sequela; V89.2XXS Person injured in unspecified motor-vehicle accident, traffic, sequela | CPT/HCPCS: 11042 ==

== ENCOUNTER → 2025-01-04 | Outpatient (CLI) | payer MEDICARE, SELFPAY | END | disposition home or self-care (01) | LOC: SWHD 09:44 | PROVIDERS: PCP Emergency Medicine; Referring Provider Emergency Medicine; Visit Provider Student in an Organized Health Care Education/Training Program | DX: L89.324 Pressure ulcer of left buttock, stage 4 (principal); G82.20 Paraplegia, unspecified; E66.9 Obesity, unspecified | CPT/HCPCS: 11042 ==

== ENCOUNTER → 2025-02-03 | Outpatient (CLI) | payer MEDICARE, SELFPAY | END | disposition home or self-care (01) | LOC: SWHD 09:23 | PROVIDERS: PCP Emergency Medicine; Referring Provider Emergency Medicine; Visit Provider Surgery | DX: L89.324 Pressure ulcer of left buttock, stage 4 (principal); G82.20 Paraplegia, unspecified; E66.9 Obesity, unspecified | CPT/HCPCS: 97597 ==

== ENCOUNTER → 2025-02-17 | Outpatient (CLI) | payer MEDICARE, SELFPAY | END | disposition home or self-care (01) | LOC: SWHD 13:29 | PROVIDERS: PCP Emergency Medicine; Referring Provider Emergency Medicine; Visit Provider Student in an Organized Health Care Education/Training Program | DX: L89.324 Pressure ulcer of left buttock, stage 4 (principal); G82.20 Paraplegia, unspecified; E66.9 Obesity, unspecified | CPT/HCPCS: 97597; A9270 ==

== ENCOUNTER → 2025-02-24 | Outpatient (CLI) | payer MEDICARE, SELFPAY | END | disposition home or self-care (01) | LOC: SWHD 14:33 | PROVIDERS: PCP Emergency Medicine; Referring Provider Emergency Medicine; Visit Provider Student in an Organized Health Care Education/Training Program | DX: L89.324 Pressure ulcer of left buttock, stage 4 (principal); G82.20 Paraplegia, unspecified; E66.9 Obesity, unspecified | CPT/HCPCS: 97597 ==

== ENCOUNTER → 2025-03-17 | Outpatient (CLI) | payer MEDICARE, SELFPAY | END | disposition home or self-care (01) | LOC: SWHD 12:56 | PROVIDERS: PCP Emergency Medicine; Referring Provider Emergency Medicine; Visit Provider Student in an Organized Health Care Education/Training Program | DX: L89.324 Pressure ulcer of left buttock, stage 4 (principal); G82.20 Paraplegia, unspecified; E66.9 Obesity, unspecified | CPT/HCPCS: 11042; A9270 ==

== ENCOUNTER → 2025-04-02 | Outpatient (CLI) | payer MEDICARE, SELFPAY | END | disposition home or self-care (01) | LOC: SWHD 10:54 | PROVIDERS: PCP Emergency Medicine; Referring Provider Emergency Medicine; Visit Provider Surgery | DX: L89.324 Pressure ulcer of left buttock, stage 4 (principal); G82.20 Paraplegia, unspecified; E66.9 Obesity, unspecified | CPT/HCPCS: 97597 ==

== ENCOUNTER → 2025-04-09 | Outpatient (CLI) | payer MEDICARE, SELFPAY | END | disposition home or self-care (01) | LOC: SWHD 13:35 | PROVIDERS: PCP Emergency Medicine; Referring Provider Emergency Medicine; Visit Provider Student in an Organized Health Care Education/Training Program | DX: L89.324 Pressure ulcer of left buttock, stage 4 (principal); G82.20 Paraplegia, unspecified; E66.9 Obesity, unspecified | CPT/HCPCS: 99213; G0463 ==

== ENCOUNTER → 2025-04-23 | Outpatient (CLI) | payer MEDICARE, SELFPAY | END | disposition home or self-care (01) | LOC: SWHD 09:04 | PROVIDERS: PCP Emergency Medicine; Referring Provider Emergency Medicine; Visit Provider Surgery | DX: L89.324 Pressure ulcer of left buttock, stage 4 (principal); G82.20 Paraplegia, unspecified; E66.9 Obesity, unspecified | CPT/HCPCS: 11042 ==

== ENCOUNTER → 2025-05-12 | Outpatient (CLI) | payer MEDICARE, SELFPAY | END | disposition home or self-care (01) | PROVIDERS: PCP Emergency Medicine; Referring Provider Emergency Medicine; Visit Provider Student in an Organized Health Care Education/Training Program | DX: L89.324 Pressure ulcer of left buttock, stage 4 (principal); G82.20 Paraplegia, unspecified; E66.9 Obesity, unspecified | CPT/HCPCS: 11042; A9270 ==

== ENCOUNTER → 2025-05-18 | Outpatient (CLI) | payer MEDICARE, SELFPAY | END | disposition home or self-care (01) | LOC: SWHD 09:44 | PROVIDERS: PCP Emergency Medicine; Referring Provider Emergency Medicine; Visit Provider Student in an Organized Health Care Education/Training Program | DX: L89.324 Pressure ulcer of left buttock, stage 4 (principal); G82.20 Paraplegia, unspecified; E66.9 Obesity, unspecified | CPT/HCPCS: 11042; 11045; A9270 ==

== ENCOUNTER → 2025-06-01 | Outpatient (CLI) | payer MEDICARE, SELFPAY | END | disposition home or self-care (01) | LOC: SWHD 10:42 | PROVIDERS: PCP Emergency Medicine; Referring Provider Emergency Medicine; Visit Provider Student in an Organized Health Care Education/Training Program | DX: L89.324 Pressure ulcer of left buttock, stage 4 (principal); G82.20 Paraplegia, unspecified; E66.9 Obesity, unspecified | CPT/HCPCS: 11042; A9270 ==